=== PATIENT | female | born 1980 | race Caucasian/White ===

== ENCOUNTER 2017-07-22 17:16 | Emergency (ER) | payer SELFPAY ==
--- NOTE | 2017-07-22 17:52 | ER Document Report ---
HPI - HPI Patient complains to provider of: sicke for 9 days Onset: Other - 9 days Pain Level: 3 Context: 36 yo smoker female sick for 9 days with cough, congestion, left sinus congestion, dizziness, fever, vomiting, diarrhea, left ear pain. Associated Symptoms: None Exacerbated by: Denies Relieved by: Denies Similar symptoms previously: No Recently seen / treated by doctor: No - ROS ROS below otherwise negative: Yes Systems Reviewed and Negative: Yes All other systems reviewed and negative - REPRODUCTIVE Reproductive: DENIES: : Past Medical History - General Information source: Patient - Social History Smoking Status: Current Every Day Smoker Frequency of alcohol use: None Drug Abuse: None Lives with: Spouse/Significant other Family History: Reviewed & Not Pertinent - Medical History Medical History: Negative Musculoskeltal Medical History: Denies Hx Arthritis Past Surgical History: Reports: Hx Cholecystectomy, Hx Hysterectomy, Hx Orthopedic Surgery - Immunizations Immunizations up to date: Yes Hx Diphtheria, Pertussis, Tetanus Vaccination: Yes Vertical Provider Document - CONSTITUTIONAL Agree With Documented VS: Yes General Appearance: No Apparent Distress - INFECTION CONTROL TRAVEL OUTSIDE OF THE [place] IN LAST 30 DAYS: No - HEENT HEENT: Conjuctival Injection - bilateral, right more than left. No fluorescein uptake., PERRLA Notes: left purulent effusion, no bulge - NECK Neck: Supple, Lymphadenopathy-Left, Lymphadenopathy-Right - RESPIRATORY Respiratory: Rales - left O2 Sat by Pulse Oximetry: 97 Notes: after nebulizer tx coarse rhonci bilatera - CARDIOVASCULAR Cardiovascular: Regular Rate, Regular Rhythm - GI/ABDOMEN Gastrointestinal: Abdomen Soft, Abdomen Non-Tender, No Organomegaly - MUSCULOSKELETAL/EXTREMETIES Musculoskeletal/Extremeties: MAEW - NEURO Level of Consciousness: Awake, Alert Motor/Sensory: No Motor Deficit, No Sensory Deficit - DERM Integumentary: No Rash Course - Re-evaluation Re-evalutation: 07/22/17 19:27 Chest x-ray suspicious for pneumonia per the radiologist - Vital Signs Vital signs: Temp Pulse Resp BP Pulse Ox 98.4 F 78 20 135/100 H 97 07/22/17 17:24 07/22/17 17:24 07/22/17 17:24 07/22/17 17:24 07/22/17 17:24 Discharge - Discharge Clinical Impression: Bilateral conjunctivitis, Left otitis media, Right upper lobe pneumonia Condition: Good Disposition: HOME, SELF-CARE Instructions: Ciprofloxacin ([facility]), Conjunctivitis ([facility]), Eyedrop Use ([facility]), Levofloxacin, Otitis Media ([facility]), Pneumonia ([facility]), Stop Smoking ([facility]) Additional Instructions: stop smoking saline nasal spray to help clear the sinus warm compress to sinus antibiotics as prescribed to ER if shortness of breath, trouble breathing, swelling to eyes any concerns use the albuterol MDI 2 puffs every 3 hours for the cough 2 eye drops for the conjunctivits 6 times per day for 2 days, then four times per day for 3 days Prescriptions: Albuterol Sulfate [Proair HFA Inhalation Aerosol 8.5 gm MDI] 2 puff IH Q3HP PRN #1 hfa.aer.ad PRN Reason: Ciprofloxacin HCl [Ciloxan] 2 drp OU 6XD #1 bottle Levofloxacin 750 mg PO DAILY #4 tablet Forms: Return to Work
[2017-07-22] MEDS ORDERED: IPRATROPIUM/ALBUTEROL 0.5-2.5 MG/3 ML AMPUL NEB ONE (18:15)
--- NOTE | 2017-07-22 18:36 | RADIOLOGY REPORT (SQ) ---
EXAM DESCRIPTION: CHEST PA/LAT COMPLETED DATE/TIME: 07/22/2017 6:28 pm REASON FOR STUDY: cough, rales left base COMPARISON: 08/10/2012 EXAM PARAMETERS: NUMBER OF VIEWS: two views TECHNIQUE: Digital Frontal and Lateral radiographic views of the chest acquired. RADIATION DOSE: NA LIMITATIONS: none FINDINGS: LUNGS AND PLEURA: New patchy right upper lobe airspace opacities. Lungs otherwise clear. MEDIASTINUM AND HILAR STRUCTURES: No masses or contour abnormalities. HEART AND VASCULAR STRUCTURES: Heart normal size. No evidence for failure. BONES: No acute findings. HARDWARE: None in the chest. OTHER: No other significant finding. IMPRESSION: NEW PATCHY RIGHT UPPER LOBE AIRSPACE OPACITIES SUSPICIOUS FOR DEVELOPING PNEUMONIA. REC OMMEND FOLLOWUP RADIOGRAPHS 4 TO 6 WEEKS TO ENSURE RESOLUTION. TECHNICAL DOCUMENTATION: JOB ID: [id number] [employer]- All Rights Reserved Reading location - IP/workstation name: [email or web address]
[2017-07-22] MEDS ORDERED: ALBUTEROL SULFATE 0.083% NEB 2.5 MG/3 ML AMPUL NEB ONE (19:23)
[2017-07-22] MEDS ORDERED: LEVOFLOXACIN 750 MG TABLET PO ONE (19:31)
[2017-07-22 20:20] VITALS: BP 132/75
== END 2017-07-22 20:20 | disposition home or self-care (01) ==
LOC: ER 17:16
DX: J18.9 Pneumonia, unspecified organism (principal); H66.92 Otitis media, unspecified, left ear; H10.33 Unspecified acute conjunctivitis, bilateral; F17.200 Nicotine dependence, unspecified, uncomplicated; Z90.49 Acquired absence of other specified parts of digestive tract; Z90.710 Acquired absence of both cervix and uterus
CPT/HCPCS: 94640 ×2; 99283; 71046; J7620

== ENCOUNTER 2017-07-25 15:43 | Inpatient (IN) | payer MEDICAID ==
[2017-07-25] MEDS ORDERED: NORMAL SALINE 1000 ML 1,000 ML IV ONE ×3 (17:16→21:05)
[2017-07-25] MEDS ORDERED: ONDANSETRON HCL INJ/PF 4 MG/2 ML SDV IV ONE (17:16)
--- NOTE | 2017-07-25 17:17 | ER Document Report ---
ED Medical Screen (RME) - General Chief Complaint: Vomiting Stated Complaint: EAR PAIN, VOMITING Time Seen by Provider: 07/25/17 17:12 Notes: Patient was here approximately 2 days ago and diagnosed with pneumonia. She states she was also diagnosed with bilateral conjunctivitis and sinusitis. She states she has been taking the antibiotics however she does not feel any better and is having worse vomiting. She states she feels very weak and nauseous and has generalized body aches. TRAVEL OUTSIDE OF THE [place] IN LAST 30 DAYS: No - Related Data Allergies/Adverse Reactions: cortisone [Cortisone] Allergy (Verified 07/25/17 15:47) Past Medical History - Social History Chew tobacco use (# tins/day): No Frequency of alcohol use: None Drug Abuse: None - Past Medical History Cardiac Medical History: Denies: Hx Coronary Artery Disease, Hx Heart Attack, Hx Hypertension Pulmonary Medical History: Denies: Hx Asthma, Hx Bronchitis, Hx COPD, Hx Pneumonia Neurological Medical History: Denies: Hx Cerebrovascular Accident, Hx Seizures Renal/ Medical History: Denies: Hx Peritoneal Dialysis Musculoskeltal Medical History: Denies Hx Arthritis Past Surgical History: Reports: Hx Cholecystectomy, Hx Hysterectomy, Hx Orthopedic Surgery - bilateral knee surgery - Immunizations Immunizations up to date: Yes Hx Diphtheria, Pertussis, Tetanus Vaccination: Yes Physical Exam - Vital signs Vitals: Temp Pulse Resp BP Pulse Ox 96.5 F L 68 18 135/94 H 98 07/25/17 16:04 07/25/17 16:04 07/25/17 16:04 07/25/17 16:04 07/25/17 16:04 Course - Vital Signs Vital signs: Temp Pulse Resp BP Pulse Ox 96.5 F L 68 18 135/94 H 98 07/25/17 16:04 07/25/17 16:04 07/25/17 16:04 07/25/17 16:04 07/25/17 16:04
[2017-07-25 17:41] LABS: HEMATOCRIT 41.1 % (36.0-47.0); HEMOGLOBIN 14.1 g/dL (12.0-15.5); MEAN CORPUSCULAR HEMOGLOBIN 31.5 pg (27.0-33.4); MEAN CORPUSCULAR HGB CONC 34.2 g/dL (32.0-36.0); MEAN CORPUSCULAR VOLUME 92 fl (80-97); PLATELET COUNT 213 10^3/uL (150-450); RED BLOOD COUNT 4.46 10^6/uL (3.72-5.28); RED CELL DISTRIBUTION WIDTH 15.1 % (11.5-14.0); WHITE BLOOD COUNT 14.9 10^3/uL (4.0-10.5)
--- NOTE | 2017-07-25 17:53 | RADIOLOGY REPORT (SQ) ---
EXAM DESCRIPTION: CHEST PA/LAT COMPLETED DATE/TIME: 07/25/2017 5:41 pm REASON FOR STUDY: recent pna/sob/cp COMPARISON: 07/22/2017 EXAM PARAMETERS: NUMBER OF VIEWS: two views TECHNIQUE: Digital Frontal and Lateral radiographic views of the chest acquired. RADIATION DOSE: NA LIMITATIONS: none FINDINGS: LUNGS AND PLEURA: No opacities, masses or pneumothorax. No pleural effusion. MEDIASTINUM AND HILAR STRUCTURES: No masses or contour abnormalities. HEART AND VASCULAR STRUCTURES: Heart normal size. No evidence for failure. BONES: No acute findings. HARDWARE: None in the chest. OTHER: No other significant finding. IMPRESSION: NO SIGNIFICANT RADIOGRAPHIC FINDING IN THE CHEST. TECHNICAL DOCUMENTATION: JOB ID: [id number] [employer]- All Rights Reserved Reading location - IP/workstation name: [email or web address]
[2017-07-25 17:57] LABS: AMORPHOUS SEDIMENT,URINE TRACE /HPF; APPEARANCE,URINE SLIGHTLY-CLOUDY; BILIRUBIN,URINE NEGATIVE (NEGATIVE); COLOR,URINE YELLOW; GLUCOSE, URINE NEGATIVE (NEGATIVE); KETONES,URINE NEGATIVE (NEGATIVE); LEUKOCYTE ESTERASE,URINE NEGATIVE (NEGATIVE); NITRITE,URINE NEGATIVE (NEGATIVE); PROTEIN,URINE NEGATIVE (NEGATIVE); URINE SPECIFIC GRAVITY 1.017; UROBILINOGEN,URINE NEGATIVE mg/dL (<2.0)
[2017-07-25 18:00] LABS: ALANINE AMINOTRANSFERASE 253 U/L (9-52); ALBUMIN 4.5 g/dL (3.5-5.0); ALKALINE PHOSPHATASE 211 U/L (38-126); ASPARTATE AMINO TRANSFERASE 46 U/L (14-36); BILIRUBIN,DIRECT 0.9 mg/dL (0.0-0.4); CALCIUM 11.1 mg/dL (8.4-10.2); GLUCOSE 95 mg/dL (75-110)
[2017-07-25 18:01] LABS: ABSOLUTE LYMPHOCYTES# (MANUAL) 3.3 10^3/uL (0.5-4.7); ABSOLUTE NEUTROPHILS# (MANUAL) 10.6 10^3/uL (1.7-8.2); BAND NEUTROPHILS % (MANUAL) 1 % (3-5); BASOPHILS % (MANUAL) 0 % (0-2); EOSINOPHILS % (MANUAL) 0 % (0-6); LYMPHOCYTES % (MANUAL) 21 % (13-45); MONOCYTES % (MANUAL) 7 % (3-13); SEGMENTED NEUTROPHILS % (MAN) 70 % (42-78); TOTAL CELLS COUNTED 100
[2017-07-25 18:04] LABS: ANISOCYTOSIS SLIGHT; POLYCHROMASIA SLIGHT
[2017-07-25 18:08] LABS: HYPERSEGMENTED NEUTROPHILS PRESENT
[2017-07-25 18:09] LABS: PLATELET COMMENT ADEQUATE
[2017-07-25 18:14] LABS: CARBON DIOXIDE 19 mmol/L (22-30); POTASSIUM 4.5 mmol/L (3.6-5.0)
[2017-07-25 18:20] LABS: BLOOD UREA NITROGEN 146 mg/dL (7-20)
[2017-07-25 18:21] LABS: ANION GAP 26 (5-19); CHLORIDE 88 mmol/L (98-107); SODIUM 132.5 mmol/L (137-145)
--- NOTE | 2017-07-25 18:44 | ER Document Report ---
ED GI/ - General Chief Complaint: Vomiting Stated Complaint: EAR PAIN, VOMITING Time Seen by Provider: 07/25/17 17:12 Notes: The patient is a 36-year-old female who presents with nausea, vomiting and abdominal cramping over the past 4 days. She is diagnosed with pneumonia in the ER 3 days ago and started on Cipro. Patient said her shortness of breath and coughing are much better, but she is still having the vomiting. Patient also with bilateral ear pain and sinus congestion. She is only making a small amount of urine, but denies dysuria or hematuria. Patient denies rash, chest pain, other new medications, fevers, flank pain, blood in stool, hemoptysis, hematemesis or leg swelling. TRAVEL OUTSIDE OF THE [place] IN LAST 30 DAYS: No - Related Data Allergies/Adverse Reactions: cortisone [Cortisone] Allergy (Verified 07/25/17 15:47) Past Medical History - General Information source: Patient - Social History Smoking Status: Current Every Day Smoker Chew tobacco use (# tins/day): No Frequency of alcohol use: None Drug Abuse: None Family History: Reviewed & Not Pertinent Patient has suicidal ideation: No Patient has homicidal ideation: No - Past Medical History Cardiac Medical History: Denies: Hx Coronary Artery Disease, Hx Heart Attack, Hx Hypertension Pulmonary Medical History: Denies: Hx Asthma, Hx Bronchitis, Hx COPD, Hx Pneumonia Neurological Medical History: Denies: Hx Cerebrovascular Accident, Hx Seizures Renal/ Medical History: Denies: Hx Peritoneal Dialysis Musculoskeltal Medical History: Denies Hx Arthritis Past Surgical History: Reports: Hx Cholecystectomy, Hx Hysterectomy, Hx Orthopedic Surgery - bilateral knee surgery - Immunizations Immunizations up to date: Yes Hx Diphtheria, Pertussis, Tetanus Vaccination: Yes Review of Systems - Review of Systems Notes: REVIEW OF SYSTEMS: CONSTITUTIONAL: -fevers, -chills EENT: -eye pain, -difficulty swallowing, +nasal congestion, +B/L ear pain CARDIOVASCULAR: -chest pain, -syncope. RESPIRATORY: -cough, -SOB GASTROINTESTINAL: -abdominal pain, +nausea, +vomiting, -diarrhea GENITOURINARY: -dysuria, -hematuria MUSCULOSKELETAL: -back pain, -neck pain SKIN: -rash or skin lesions. HEMATOLOGIC: -easy bruising or bleeding. LYMPHATIC: -swollen, enlarged glands. NEUROLOGICAL: -altered mental status or loss of consciousness, -headache, - neurologic symptoms PSYCHIATRIC: -anxiety, -depression. ALL OTHER SYSTEMS REVIEWED AND NEGATIVE. Physical Exam - Vital signs Vitals: Temp Pulse Resp BP Pulse Ox 96.5 F L 68 18 135/94 H 98 07/25/17 16:04 07/25/17 16:04 07/25/17 16:04 07/25/17 16:04 07/25/17 16:04 - Notes Notes: PHYSICAL EXAMINATION: GENERAL: Well-appearing, well-nourished and in no acute distress. HEAD: Atraumatic, normocephalic. EYES: Pupils equal round and reactive to light, extraocular movements intact, sclera anicteric, conjunctiva are normal. ENT: nares patent, oropharynx clear without exudates. Moist mucous membranes. Fluid behind B/L TMs. Swollen turbinates. NECK: Normal range of motion, supple without lymphadenopathy LUNGS: Breath sounds clear to auscultation bilaterally and equal. No wheezes rales or rhonchi. HEART: Regular rate and rhythm without murmurs ABDOMEN: Soft, mild RUQ tenderness, normoactive bowel sounds. No guarding, no rebound. No masses appreciated. EXTREMITIES: Normal range of motion, no pitting or edema. No cyanosis. NEUROLOGICAL: Cranial nerves grossly intact. Normal speech, normal gait. Normal sensory and motor exams. PSYCH: Normal mood, normal affect. SKIN: Warm, Dry, normal turgor, no rashes or lesions noted. Course - Re-evaluation Re-evalutation: Patient with 4 days of nausea, vomiting and decreased oral intake over the past 4 days. No history of kidney disease that the patient is aware of. Her BUN is 146, creatinine is 17 and GFR is 3. This was repeated and confirmed. Ultrasound to look for obstruction of her kidneys was performed and this was normal. Her RUQ US also did not show any acute abnormalities to suggest her slightly elevated LFTs. Pt has no signs of infection at this time and suspect her leukocytosis is most likely related to her vomiting. Patient has no need for emergent dialysis at this time, as she is not fluid overloaded, her potassium is normal and she does not appear uremic. Her PMD is Manisha Mondragon. 07/25/17 20:[address] Burton (Chef De Froid) and she recommends continued IVF hydration and admission. She will consult. 07/25/17 21:[address] Block (Hospitalist) and he is requesting bedside consultation by Dr. Burton due to difficulty obtaining dialysis on Tuesdays before he accepts. Spoke to Dr. Burton and she will call Dr. Block. 07/25/17 21:39 Will admit patient as Inpatient to Medical floor. - Vital Signs Vital signs: Temp Pulse Resp BP Pulse Ox 97.6 F 68 17 123/83 95 07/25/17 20:15 07/25/17 16:04 07/25/17 21:00 07/25/17 21:01 07/25/17 21:01 - Laboratory Result Diagrams: 07/25/17 17:25 07/25/17 19:51 Laboratory results interpreted by me: 07/25/17 07/25/17 07/25/17 17:25 17:25 17:25 WBC 14.9 H RDW 15.1 H Band Neutrophils % 1 L Abs Neuts (Manual) 10.6 H Sodium 132.5 L Chloride 88 L Carbon Dioxide 19 L Anion Gap 26 H BUN 146 H Creatinine 17.82 H Est GFR ( Amer) 3 L Est GFR (Non-Af Amer) 2 L Calcium 11.1 H Direct Bilirubin 0.9 H AST 46 H ALT 253 H Alkaline Phosphatase 211 H Total Protein Urine Blood SMALL H Urine Total Protein 07/25/17 07/25/17 17:25 19:51 WBC RDW Band Neutrophils % Abs Neuts (Manual) Sodium 132.2 L Chloride 93 L Carbon Dioxide 19 L Anion Gap 20 H BUN 146 H Creatinine 16.47 H Est GFR ( Amer) 3 L Est GFR (Non-Af Amer) 2 L Calcium Direct Bilirubin 0.8 H AST 38 H ALT 205 H Alkaline Phosphatase 162 H Total Protein 5.9 L Urine Blood Urine Total Protein 30.0 H - Diagnostic Test Radiology reviewed: Image reviewed, Reports reviewed Radiology results interpreted by me: Abdominal US: NAD Discharge - Discharge Clinical Impression: JASMIN (acute kidney injury), Nausea vomiting and diarrhea Condition: Stable Disposition: ADMITTED INPATIENT Admitting Provider: Bo Block Unit Admitted: Medical Floor
[2017-07-25 18:56] LABS: URINE AMPHETAMINES SCREEN NEGATIVE; URINE BARBITURATES SCREEN NEGATIVE; URINE BENZODIAZEPINES SCREEN NEGATIVE; URINE COCAINE SCREEN NEGATIVE; URINE MARIJUANA (THC) SCREEN NEGATIVE; URINE METHADONE SCREEN NEGATIVE; URINE PHENCYCLIDINE SCREEN NEGATIVE
--- NOTE | 2017-07-25 20:10 | RADIOLOGY REPORT (SQ) ---
EXAM DESCRIPTION: U/S ABDOMEN COMPLETE W/O DOP COMPLETED DATE/TIME: 07/25/2017 7:33 pm REASON FOR STUDY: vomiting, RUQ pain, post-todd COMPARISON: None. TECHNIQUE: Dynamic and static grayscale images acquired of the abdomen and recorded on PACS. Joseo becki selected color Doppler and spectral images recorded. LIMITATIONS: None. FINDINGS: PANCREAS: Head and body of the pancreas are normal. The tail was poorly seen. LIVER: 16.3 cm. No masses. LIVER VASCULATURE: Normal directional flow of the main portal vein and hepatic veins. GALLBLADDER: Surgically absent. ULTRASOUND-DETECTED LEHMAN'S SIGN: Not applicable INTRAHEPATIC DUCTS AND COMMON DUCT: CBD and intrahepatic ducts normal caliber. No filling defects. INFERIOR VENA CAVA: Normal flow. AORTA: No aneurysm. RIGHT KIDNEY: Normal size, 12.7 cm. Normal echogenicity. No solid or suspicious masses. No hyd ronephrosis. No calcifications. LEFT KIDNEY: Normal size, 12 cm. Normal echogenicity. No solid or suspicious masses. No hydron ephrosis. No calcifications. SPLEEN: 11.1 cm. No masses. PERITONEAL AND PLEURAL SPACES: No ascites or effusions. OTHER: The urinary bladder is incompletely distended and not well evaluated. A left urinary jet was seen. IMPRESSION: NORMAL ABDOMINAL ULTRASOUND. TECHNICAL DOCUMENTATION: JOB ID: [id number] [employer]- All Rights Reserved Reading location - IP/workstation name: [email or web address]
[2017-07-25 20:11] LABS: URINE CREATININE 110.9 mg/dL (16-327)
[2017-07-25 20:14] LABS: ALANINE AMINOTRANSFERASE 205 U/L (9-52); ALBUMIN 3.6 g/dL (3.5-5.0); ALKALINE PHOSPHATASE 162 U/L (38-126); ASPARTATE AMINO TRANSFERASE 38 U/L (14-36); BILIRUBIN,DIRECT 0.8 mg/dL (0.0-0.4); BILIRUBIN,TOTAL 0.9 mg/dL (0.2-1.3); CALCIUM 9.5 mg/dL (8.4-10.2); CARBON DIOXIDE 19 mmol/L (22-30); CHLORIDE 93 mmol/L (98-107); GLUCOSE 94 mg/dL (75-110); POTASSIUM 4.3 mmol/L (3.6-5.0); SODIUM 132.2 mmol/L (137-145); TOTAL PROTEIN 5.9 g/dL (6.3-8.2)
[2017-07-25 20:53] LABS: ANION GAP 20 (5-19); BLOOD UREA NITROGEN 146 mg/dL (7-20)
[2017-07-25] MEDS: HEPARIN SOD (PORCINE) 5,000 UNIT/ML 1 ML SYRINGE SUBCUT SCH (22:18)
[2017-07-25] MEDS: NORMAL SALINE 1000 ML 1,000 ML IV SCH (22:21)
[2017-07-25] MEDS: IPRATROPIUM/ALBUTEROL 0.5-2.5 MG/3 ML AMPUL NEB PRN (22:34)
[2017-07-26] MEDS: NORMAL SALINE 1000 ML 1,000 ML IV SCH ×2 (01:03→06:22)
[2017-07-26] MEDS ORDERED: CHLORPHENIRAMINE MALEATE 4 MG TABLET ONE (01:06)
[2017-07-26] MEDS: IPRATROPIUM/ALBUTEROL 0.5-2.5 MG/3 ML AMPUL NEB PRN (01:17)
[2017-07-26] MEDS: ONDANSETRON HCL INJ/PF 4 MG/2 ML SDV IV PRN ×3 (01:18→09:55)
--- NOTE | 2017-07-26 03:30 | PDOC H&P ---
History of Present Illness Admission Date/PCP: 07/25/17 21:33 Patient complains of: Nausea and vomiting History of Present Illness: DAVIS BRUCE is a 36 year old female with a past medical history of substance and tobacco abuse. Patient presents with 2 weeks of symptoms of upper respiratory infection for which she was treated with ciprofloxacin 3 days ago. She has had no improvement but has developed anorexia, nausea with vomiting of gastric content and subjective fever. In the emergency room she has a workup notable for leukocytosis of 15,000 and a creatinine of 17 with BUN of 146. Patient denies history of renal failure, oliguria, shortness of breath , palpitations or [id number]-[id number] medication use. She started on an IV fluid challenge, flower shop laborer/designer Dr. Burton is consulted and she is referred to the hospitalist for admission. Past Medical History Cardiac Medical History: Denies: Coronary Artery Disease, Myocardial Infarction, Hypertension Pulmonary Medical History: Denies: Asthma, Bronchitis, Chronic Obstructive Pulmonary Disease (COPD), Pneumonia Neurological Medical History: Denies: Seizures Musculoskeltal Medical History: Denies: Arthritis Psychiatric Medical History: Reports: Substance Abuse, Tobacco Dependency Hematology: Denies: Anemia Past Surgical History Past Surgical History: Reports: Cholecystectomy, Hysterectomy, Orthopedic Surgery - bilateral knee surgery Social History Information Source: Patient Smoking Status: Current Every Day Smoker Frequency of Alcohol Use: Rare Drugs: None - Advance Directive Resuscitation Status: Full Code Family History Family History: COPD Parental Family History Reviewed: Yes Children Family History Reviewed: Yes Sibling(s) Family History Reviewed.: Yes Medication/Allergy Home Medications: No Home Medications 07/25/17 Allergies/Adverse Reactions: cortisone [Cortisone] Allergy (Verified 07/25/17 15:47) Review of Systems Constitutional: PRESENT: as per HPI, anorexia, chills, fatigue, fever(s). ABSENT: headache(s), weight gain, weight loss Eyes: PRESENT: as per HPI. ABSENT: visual disturbances Ears: PRESENT: as per HPI. ABSENT: hearing changes Cardiovascular: ABSENT: chest pain, dyspnea on exertion, edema, orthropnea, palpitations Respiratory: ABSENT: cough, hemoptysis Gastrointestinal: PRESENT: as per HPI, abdominal pain, nausea, vomiting. ABSENT : coffee ground emesis, constipation, diarrhea, hematemesis, hematochezia Genitourinary: PRESENT: as per HPI. ABSENT: dysuria, hematuria Musculoskeletal: ABSENT: joint swelling Integumentary: ABSENT: rash, wounds Neurological: ABSENT: abnormal gait, abnormal speech, confusion, dizziness, focal weakness, syncope Psychiatric: ABSENT: anxiety, depression, homidical ideation, suicidal ideation Endocrine: ABSENT: cold intolerance, heat intolerance, polydipsia, polyuria Hematologic/Lymphatic: ABSENT: easy bleeding, easy bruising Physical Exam Vital Signs: Temp Pulse Resp BP Pulse Ox 97.6 F 68 18 131/83 H 95 07/25/17 20:15 07/25/17 16:04 07/26/17 00:01 07/26/17 00:00 07/26/17 00:01 Intake & Output 07/24/17 07/25/17 07/26/17 11:59 11:59 11:59 Output Total 200 Balance -200 General appearance: PRESENT: cooperative, disheveled, mild distress, thin Head exam: PRESENT: atraumatic, normocephalic Eye exam: PRESENT: conjunctiva pink, EOMI, PERRLA. ABSENT: scleral icterus Ear exam: PRESENT: normal external ear exam Mouth exam: PRESENT: moist, tongue midline Neck exam: ABSENT: carotid bruit, JVD, lymphadenopathy, thyromegaly Respiratory exam: PRESENT: accessory muscle use, crackles, decreased breath sounds, prolonged expiratory phas, symmetrical, tachypnea. ABSENT: rhonchi, stridor, wheezes Cardiovascular exam: PRESENT: RRR. ABSENT: diastolic murmur, rubs, systolic murmur Pulses: PRESENT: normal dorsalis pedis pul Vascular exam: PRESENT: normal capillary refill GI/Abdominal exam: PRESENT: normal bowel sounds, soft. ABSENT: distended, guarding, mass, organolmegaly, rebound, tenderness Rectal exam: PRESENT: deferred Extremities exam: PRESENT: full ROM. ABSENT: calf tenderness, clubbing, pedal edema Neurological exam: PRESENT: alert, awake, oriented to person, oriented to place , oriented to time, oriented to situation, CN II-XII grossly intact. ABSENT: motor sensory deficit Psychiatric exam: PRESENT: appropriate affect, normal mood. ABSENT: homicidal ideation, suicidal ideation Skin exam: PRESENT: dry, intact, warm. ABSENT: cyanosis, rash Results Impressions: Chest X-Ray 07/25/17 17:16 IMPRESSION: NO SIGNIFICANT RADIOGRAPHIC FINDING IN THE CHEST. Abdomen Ultrasound 07/25/17 18:32 IMPRESSION: NORMAL ABDOMINAL ULTRASOUND. Assessment & Plan - Diagnosis (1) JASMIN (acute kidney injury) Is this a current diagnosis for this admission?: Yes Plan: IV fluid challenge, follow-up nephrology consult and chemistry. (2) URI (upper respiratory infection) Is this a current diagnosis for this admission?: Yes Plan: Symptomatic management for sinusitis, chlorpheniramine, Flonase, albuterol and Atrovent, given leukocytosis will add Rocephin. (3) Tobacco abuse Plan: Tobacco Dependence patient received tobacco cessation counseling and offered nicotine replacement options (4) Nausea vomiting and diarrhea Is this a current diagnosis for this admission?: Yes Plan: Symptomatic management, consider imaging. - Time Time Spent: 30 to 50 Minutes - Inpatient Certification Medical Necessity: Need Close Monitoring Due to Risk of Patient Decompensation
[2017-07-26] MEDS ORDERED: CEFTRIAXONE 1 GM/D5W RTU 1 GM/50 ML RTUPB IV ONE (04:00)
[2017-07-26 04:13] LABS: HEMATOCRIT 33.1 % (36.0-47.0); MEAN CORPUSCULAR HEMOGLOBIN 31.9 pg (27.0-33.4); MEAN CORPUSCULAR HGB CONC 34.4 g/dL (32.0-36.0); MEAN CORPUSCULAR VOLUME 93 fl (80-97); PLATELET COUNT 161 10^3/uL (150-450); RED BLOOD COUNT 3.57 10^6/uL (3.72-5.28); RED CELL DISTRIBUTION WIDTH 15.1 % (11.5-14.0); WHITE BLOOD COUNT 10.6 10^3/uL (4.0-10.5)
[2017-07-26 04:17] LABS: HEMOGLOBIN 11.4 g/dL (12.0-15.5)
[2017-07-26 04:23] LABS: ANION GAP 17 (5-19); CALCIUM 8.5 mg/dL (8.4-10.2); CARBON DIOXIDE 15 mmol/L (22-30); CHLORIDE 105 mmol/L (98-107); GLUCOSE 81 mg/dL (75-110); POTASSIUM 4.2 mmol/L (3.6-5.0); SODIUM 137.4 mmol/L (137-145)
[2017-07-26 04:29] LABS: ABSOLUTE LYMPHOCYTES# (MANUAL) 2.1 10^3/uL (0.5-4.7); ABSOLUTE MONOCYTES # (MANUAL) 0.7 10^3/uL (0.1-1.4); ABSOLUTE NEUTROPHILS# (MANUAL) 7.7 10^3/uL (1.7-8.2); BAND NEUTROPHILS % (MANUAL) 2 % (3-5); BASOPHILS % (MANUAL) 0 % (0-2); EOSINOPHILS % (MANUAL) 0 % (0-6); LYMPHOCYTES % (MANUAL) 20 % (13-45); MONOCYTES % (MANUAL) 7 % (3-13); SEGMENTED NEUTROPHILS % (MAN) 71 % (42-78); TOTAL CELLS COUNTED 100
[2017-07-26 04:32] LABS: ANISOCYTOSIS SLIGHT; BURR CELLS SLIGHT; OVALOCYTES SLIGHT; POIKILOCYTOSIS 1+; TOXIC GRANULATION 2+
[2017-07-26 04:33] LABS: PLATELET COMMENT ADEQUATE; PLATELET LARGE PRESENT; SCHISTOCYTES 1+; TEAR DROP CELLS 1+
[2017-07-26 04:34] LABS: BLOOD UREA NITROGEN 127 mg/dL (7-20)
[2017-07-26] MEDS ORDERED: CEFTRIAXONE INJ 1000 MG VIAL ONE (04:34)
[2017-07-26] MEDS: HEPARIN SOD (PORCINE) 5,000 UNIT/ML 1 ML SYRINGE SUBCUT SCH ×3 (06:22→22:20)
[2017-07-26] MEDS ORDERED: METOCLOPRAMIDE HCL INJ/PF 10 MG/2 ML SDV IV ONE (11:16)
[2017-07-26 12:54] LABS: PATH REVIEW PATHOLOGIST REVIEWED
--- NOTE | 2017-07-26 17:11 | Progress Note ---
Provider Note Provider Note: 36-year-old woman with history of substance and tobacco abuse admitted overnight with intractable nausea and vomiting associated with subjective fevers. She was found to have a white count of 15,000 on presentation and afebrile. She was found to have acute kidney injury with a BUN of 146, creatinine 18, NA 132, CO2 19. Seen and examined this am and she reports that she has not thrown up the last 1.5 hours and significant other present during rounds. She is making good urine she said and renal consulted and continue IVF.
--- NOTE | 2017-07-26 17:33 | PDOC CONSULTATION ---
Consultation Consult Date: 07/26/17 Attending physician:: DUDLEY MARSHALL Consult reason:: I was asked to see this patient because of acute kidney injury. History of Present Illness Admission Date/PCP: 07/25/17 21:33 History of Present Illness: DAVIS BRUCE is a 36 year old female with a past medical history of substance and tobacco abuse. Patient presents with 2 weeks of symptoms of upper respiratory infection for which she was treated with ciprofloxacin 3 days ago from the emergency room. She said she has had some chest congestion, sore throat, sinus congestion, and bilateral ear pains. She also claims she has some cough productive of some yellow and greenish phlegm. She has had no improvement but has developed anorexia, nausea with vomiting of gastric content for 2 weeks and subjective fever for 2 days. She said she ate very little solid food and drink very little fluids for the 2 weeks because she could not tolerate it orally. She denies intake of any nephrotoxic medications including NSAIDs. In the emergency room she has a workup notable for leukocytosis of 15, 000 and a creatinine of 17 with BUN of 146. Her CPK is within normal limits. Patient denies history of renal failure, oliguria, shortness of breath, palpitations. She said she did not notice her urine output since she has all other symptoms stated above. She denies any previous history of kidney problems in the past nor history of kidney stones. She denies noticing any blood in the urine. For the past 2 weeks though she has some episodes of leaking and having urinary accidents whenever she vomits. She denies any history of hepatitis and HIV. Since presentation in the emergency room she has been hemodynamically stable. She was given about 5-6 L of IV fluids since last night. She claims that she is going to the bathroom and has been passing urine. Urine output has not been quantified. She is comfortable and not feeling any shortness of breath. Her kidney function today shows a BUN of 127 creatinine of 15.81 with EGFR of 3. Her sodium is improved from 132.5-137.4. Her white count is also improved from 14-10. Her hemoglobin has gone down from 14-10. Past Medical History Renal/ Medical History: Reports: Other - History of endometriosis GI Medical History: Reports: Other - History of cholelithiasis Musculoskeltal Medical History: Reports: Other - History of tear of meniscus on her knees Psychiatric Medical History: Reports: Substance Abuse, Tobacco Dependency Past Surgical History Past Surgical History: Reports: Cholecystectomy, Hysterectomy, Orthopedic Surgery - bilateral knee surgery Social History Information Source: Patient Lives with: Family - 2 kids, Spouse/Significant other Smoking Status: Current Every Day Smoker Cigarettes Packs Per Day: 0.5 Frequency of Alcohol Use: Occasional Hx Recreational Drug Use: Yes - Has used marijuana in the past Drugs: None Hx Prescription Drug Abuse: Yes - Advance Directive Resuscitation Status: Full Code Family History Family History: DM - Grandparent, Hypertension - Father Parental Family History Reviewed: Yes Children Family History Reviewed: Yes Sibling(s) Family History Reviewed.: NA Medication/Allergy Home Medications: No Home Medications 07/25/17 Allergies/Adverse Reactions: cortisone [Cortisone] Allergy (Verified 07/25/17 15:47) Review of Systems All systems: reviewed and no additional remarkable complaints except as stated Review of Systems: Constitutional: ABSENT: chills, fatigue, fever(s), headache(s), weight gain, weight loss Eyes: ABSENT: visual disturbances Ears: ABSENT: hearing changes; admits plugged ears Cardiovascular: ABSENT: chest pain, dyspnea on exertion, edema, orthropnea, palpitations Respiratory: ABSENT: Dyspnea, hemoptysis; admits productive cough, admits chest congestion Gastrointestinal: ABSENT: Constipation, hematemesis, hematochezia; admits nausea , vomiting, and 1 week of diarrhea, admits abdominal pain from vomiting Genitourinary: ABSENT: dysuria, hematuria Musculoskeletal: ABSENT: joint swelling Integumentary: ABSENT: rash, wounds Neurological: ABSENT: abnormal gait, abnormal speech, confusion, dizziness, focal weakness, numbness, syncope Psychiatric: ABSENT: anxiety, depression Endocrine: ABSENT: cold intolerance, heat intolerance, polydipsia, polyuria Hematologic/Lymphatic: ABSENT: easy bleeding, easy bruising, lymphadenopathy Physical Exam Vital Signs: Temp Pulse Resp BP Pulse Ox 98.0 F 65 18 146/86 H 97 07/26/17 15:42 07/26/17 15:42 07/26/17 15:42 07/26/17 15:42 07/26/17 15:42 Intake & Output 07/25/17 07/26/17 07/27/17 06:59 06:59 06:59 Output Total 200 Balance -200 Weight 74.4 kg Exam: General appearance: no acute distress, cooperative, well-developed, well- nourished Head exam: PRESENT: atraumatic, normocephalic Eye exam: PRESENT: Conjunctiva [place], EOMI, PERRLA. ABSENT: conjunctival injection, scleral icterus Mouth exam: PRESENT: moist, neck supple, tongue midline Neck exam: PRESENT: full ROM. ABSENT: carotid bruit, JVD, lymphadenopathy, thyromegaly Respiratory exam: PRESENT: clear and mildly diminished to auscultation bilaterally. ABSENT: rales, rhonchi, stridor, wheezes Cardiovascular exam: PRESENT: RRR, +S1, +S2. ABSENT: systolic murmur Pulses: PRESENT: normal radial pulses, normal dorsalis pedis pulses GI/Abdominal exam: PRESENT: normal bowel sounds, soft. ABSENT: guarding, mass, tenderness Rectal exam: deferred Extremities exam: PRESENT: full ROM. ABSENT: calf tenderness, pedal edema Musculoskeletal: PRESENT: full ROM. ABSENT: deformity Neurological exam: PRESENT: alert, Awake, Oriented to person, Oriented to place , Oriented to time, reflexes normal, CN II-XII grossly intact. ABSENT: motor sensory deficit Psychiatric exam: PRESENT: appropriate affect, normal mood. ABSENT: homicidal ideation, suicidal ideation Skin exam: PRESENT: intact, dry, warm. ABSENT: rash Results Laboratory Results: 07/26/17 03:55 07/26/17 03:55 07/26/17 07/26/17 03:55 03:55 WBC 10.6 H RBC 3.57 L Hgb 11.4 L D Hct 33.1 L MCV 93 MCH 31.9 MCHC 34.4 RDW 15.1 H Plt Count 161 Seg Neutrophils % Not Reportable Lymphocytes % Not Reportable Monocytes % Not Reportable Eosinophils % Not Reportable Basophils % Not Reportable Absolute Neutrophils Not Reportable Absolute Lymphocytes Not Reportable Absolute Monocytes Not Reportable Absolute Eosinophils Not Reportable Absolute Basophils Not Reportable Sodium 137.4 Potassium 4.2 Chloride 105 Carbon Dioxide 15 L Anion Gap 17 BUN 127 H Creatinine 15.81 H Est GFR ( Amer) 3 L Est GFR (Non-Af Amer) 3 L Glucose 81 Calcium 8.5 Impressions: Chest X-Ray 07/25/17 17:16 IMPRESSION: NO SIGNIFICANT RADIOGRAPHIC FINDING IN THE CHEST. Abdomen Ultrasound 07/25/17 18:32 IMPRESSION: NORMAL ABDOMINAL ULTRASOUND. Assessment & Plan - Diagnosis (1) JASMIN (acute kidney injury) Is this a current diagnosis for this admission?: Yes Plan: Patient does not have significant proteinuria nor microhematuria. No evidence of rhabdomyolysis. She also does not have any hydronephrosis and kidney ultrasound with normal kidney sizes. This could still be more slightly secondary to severe dehydration causing prerenal azotemia even though her urine sodium is 43. We will continue to hydrate the patient. Monitor kidney function. Since the patient's kidney function is improved after IV fluid hydration I would like to hold any renal replacement therapy as there is no urgent or emergent indication for it. Next We will recheck her BMP stat tonight. We will repeat another test tomorrow. We will monitor the patient's intake and output. Continue some IV fluids. Assessment and plan discussed with patient with her boyfriend at bedside. (2) Nausea vomiting and diarrhea Is this a current diagnosis for this admission?: Yes Plan: Defer to hospitalist for management. (3) URI (upper respiratory infection) Is this a current diagnosis for this admission?: Yes Plan: On IV antibiotics. (4) Anemia Is this a current diagnosis for this admission?: Yes Plan: Mild after IV fluids. - Notes Notes: Thank you very much for this consultation. Will follow patient with you. - Time Time Spent: 50 to 70 Minutes
[2017-07-26] MEDS: CHLORPHENIRAMINE MALEATE 4 MG TABLET PO SCH (18:15)
[2017-07-26 18:41] LABS: CALCIUM 9.1 mg/dL (8.4-10.2); GLUCOSE 93 mg/dL (75-110); POTASSIUM 4.3 mmol/L (3.6-5.0)
[2017-07-26 18:47] LABS: CARBON DIOXIDE 16 mmol/L (22-30); CHLORIDE 102 mmol/L (98-107); SODIUM 137.9 mmol/L (137-145)
[2017-07-26 18:51] LABS: BLOOD UREA NITROGEN 130 mg/dL (7-20)
[2017-07-26 18:52] LABS: ANION GAP 20 (5-19)
[2017-07-26] MEDS: NORMAL SALINE 1000 ML 1,000 ML IV PRN (22:20)
[2017-07-27] MEDS: NORMAL SALINE 1000 ML 1,000 ML IV PRN ×2 (01:45→07:18)
[2017-07-27] MEDS: HEPARIN SOD (PORCINE) 5,000 UNIT/ML 1 ML SYRINGE SUBCUT SCH ×3 (05:38→22:10)
[2017-07-27] MEDS: ONDANSETRON HCL INJ/PF 4 MG/2 ML SDV IV PRN ×2 (05:40→13:54)
[2017-07-27 06:22] LABS: HEMOGLOBIN 11.7 g/dL (12.0-15.5); MEAN CORPUSCULAR HEMOGLOBIN 32.2 pg (27.0-33.4); MEAN CORPUSCULAR HGB CONC 34.3 g/dL (32.0-36.0); MEAN CORPUSCULAR VOLUME 94 fl (80-97); PLATELET COUNT 135 10^3/uL (150-450); RED BLOOD COUNT 3.63 10^6/uL (3.72-5.28); RED CELL DISTRIBUTION WIDTH 15.2 % (11.5-14.0); WHITE BLOOD COUNT 10.2 10^3/uL (4.0-10.5)
[2017-07-27 06:44] LABS: ALANINE AMINOTRANSFERASE 126 U/L (9-52); ALBUMIN 3.1 g/dL (3.5-5.0); ALKALINE PHOSPHATASE 121 U/L (38-126); ANION GAP 19 (5-19); ASPARTATE AMINO TRANSFERASE 37 U/L (14-36); BILIRUBIN,DIRECT 0.7 mg/dL (0.0-0.4); BILIRUBIN,TOTAL 0.8 mg/dL (0.2-1.3); CALCIUM 8.8 mg/dL (8.4-10.2); CARBON DIOXIDE 12 mmol/L (22-30); CHLORIDE 108 mmol/L (98-107); GLUCOSE 73 mg/dL (75-110); POTASSIUM 5.2 mmol/L (3.6-5.0); SODIUM 138.9 mmol/L (137-145); TOTAL PROTEIN 5.4 g/dL (6.3-8.2)
[2017-07-27 06:51] LABS: BLOOD UREA NITROGEN 126 mg/dL (7-20)
[2017-07-27 07:03] LABS: ABSOLUTE LYMPHOCYTES# (MANUAL) 1.1 10^3/uL (0.5-4.7); ABSOLUTE MONOCYTES # (MANUAL) 0.4 10^3/uL (0.1-1.4); ABSOLUTE NEUTROPHILS# (MANUAL) 8.7 10^3/uL (1.7-8.2); BASOPHILS % (MANUAL) 0 % (0-2); EOSINOPHILS % (MANUAL) 0 % (0-6); LYMPHOCYTES % (MANUAL) 11 % (13-45); MONOCYTES % (MANUAL) 4 % (3-13); SEGMENTED NEUTROPHILS % (MAN) 85 % (42-78); TOTAL CELLS COUNTED 100
[2017-07-27 07:05] LABS: ANISOCYTOSIS SLIGHT; OVALOCYTES SLIGHT; POIKILOCYTOSIS SLIGHT; TEAR DROP CELLS SLIGHT; TOXIC GRANULATION SLIGHT
[2017-07-27 07:06] LABS: PLATELET COMMENT DECREASED
[2017-07-27] MEDS ORDERED: CEFTRIAXONE 1 GM/D5W RTU 1 GM/50 ML RTUPB IV SCH (08:00)
[2017-07-27 08:40] LABS: HEPATITIS A AB IGM Negative (Negative); HEPATITIS B CORE AB IGM Negative (Negative); HEPATITS B SURFACE ANTIGEN Negative (Negative)
[2017-07-27] MEDS ORDERED: ONDANSETRON HCL INJ/PF 4 MG/2 ML SDV ONE (09:15)
[2017-07-27 09:34] LABS: HEPATITIS C VIRUS ANTIBODY <0.1 s/co ratio (0.0-0.9)
[2017-07-27] MEDS ORDERED: CEFTRIAXONE SODIUM 1,000 MG in NORMAL SALINE 100 ML IV SCH (10:00)
[2017-07-27] MEDS: CHLORPHENIRAMINE MALEATE 4 MG TABLET PO SCH (10:16)
[2017-07-27] MEDS: DEXTROSE 5%-WATER 1000 ML 1,000 ML with SODIUM BICARBONATE 150 MEQ IV PRN ×4 (10:21→22:10)
--- NOTE | 2017-07-27 15:59 | PDOC PROGRESS REPORT ---
Subjective Progress Note for:: 07/27/17 Subjective:: 36-year-old woman with history of substance and tobacco abuse presented to the ED on 07/25/2017 with intractable nausea and vomiting associated with subjective fevers. She was found to have a white count of 15, 000 on presentation which has resolved and she remains afebrile. She was found to have acute kidney injury with a BUN of 146, creatinine 18, NA 132, CO2 19. Seen and examined this am, she continue to have significant nausea and vomit at times not as before admission. She reports ear pain and popping sound. She reports making good urine. Reason For Visit: ARF NAUSEA VOMITING Physical Exam Vital Signs: Temp Pulse Resp BP Pulse Ox 98.3 F 60 16 149/89 H 98 07/27/17 11:10 07/27/17 14:41 07/27/17 14:41 07/27/17 11:10 07/27/17 14:41 Intake & Output 07/26/17 07/27/17 07/28/17 06:59 06:59 06:59 Intake Total 2654 120 Output Total 200 800 Balance -200 1854 120 Weight 73.9 kg General appearance: PRESENT: no acute distress, cooperative Head exam: PRESENT: atraumatic, normocephalic Mouth exam: PRESENT: moist, neck supple Neck exam: PRESENT: full ROM Respiratory exam: PRESENT: clear to auscultation mary, unlabored. ABSENT: accessory muscle use GI/Abdominal exam: PRESENT: normal bowel sounds, soft Rectal exam: PRESENT: deferred Extremities exam: PRESENT: full ROM Musculoskeletal exam: PRESENT: full ROM Neurological exam: PRESENT: alert, oriented to person, oriented to time, oriented to situation Psychiatric exam: PRESENT: appropriate affect Skin exam: PRESENT: dry, intact Results Laboratory Results: 07/27/17 05:24 07/27/17 05:24 07/26/17 07/27/17 07/27/17 17:30 05:24 05:24 WBC 10.2 RBC 3.63 L Hgb 11.7 L Hct 34.0 L MCV 94 MCH 32.2 MCHC 34.3 RDW 15.2 H Plt Count 135 L Seg Neutrophils % Not Reportable Lymphocytes % Not Reportable Monocytes % Not Reportable Eosinophils % Not Reportable Basophils % Not Reportable Absolute Neutrophils Not Reportable Absolute Lymphocytes Not Reportable Absolute Monocytes Not Reportable Absolute Eosinophils Not Reportable Absolute Basophils Not Reportable Sodium 137.9 138.9 Potassium 4.3 5.2 H Chloride 102 108 H Carbon Dioxide 16 L 12 L Anion Gap 20 H 19 BUN 130 H 126 H Creatinine 15.45 H 14.53 H Est GFR ( Amer) 3 L 3 L Est GFR (Non-Af Amer) 3 L 3 L Glucose 93 73 L Calcium 9.1 8.8 Magnesium 1.7 Total Bilirubin 0.8 AST 37 H ALT 126 H Alkaline Phosphatase 121 Total Protein 5.4 L Albumin 3.1 L Impressions: Chest X-Ray 07/25/17 17:16 IMPRESSION: NO SIGNIFICANT RADIOGRAPHIC FINDING IN THE CHEST. Abdomen Ultrasound 07/25/17 18:32 IMPRESSION: NORMAL ABDOMINAL ULTRASOUND. Assessment & Plan - Diagnosis (1) JASMIN (acute kidney injury) Is this a current diagnosis for this admission?: Yes Plan: Nonoliguric .This is likely prerenal. She did have an abdominal ultrasound without evidence of hydronephrosis. Seen and evaluated by nephrology. Continue IV fluid hydration. Strict intake and output. Renally dose all medication. (2) Nausea vomiting and diarrhea Is this a current diagnosis for this admission?: Yes Plan: Supportive care Continue IV fluid hydration and anti-emetics as needed Abdominal ultrasound noted without acute findings (3) URI (upper respiratory infection) Qualifiers: URI type: unspecified viral URI Qualified Code(s): J06.9 - Acute upper respiratory infection, unspecified Is this a current diagnosis for this admission?: Yes Plan: Continue current management We may need to discontinue antibiotics the next 24 hours (4) Tobacco abuse Is this a current diagnosis for this admission?: Yes Plan: Nicotine replacement (5) Metabolic acidosis Is this a current diagnosis for this admission?: Yes Plan: IV Fluid adjusted and changed to bicarbonate drip (6) Hyperkalemia, diminished renal excretion Is this a current diagnosis for this admission?: Yes Plan: Started on bicarb drips (7) Acute ear pain Qualifiers: Laterality: bilateral Qualified Code(s): H92.03 - Otalgia, bilateral Is this a current diagnosis for this admission?: Yes Plan: Concern for otitis media- Cipro ear drops added and follow up (8) DVT prophylaxis Is this a current diagnosis for this admission?: Yes Plan: Ambulatory - Time Time Spent with patient: 25-34 minutes Within: Other - when renal function gets better
[2017-07-27] MEDS ORDERED: PROMETHAZINE HCL INJ 25 MG/1 ML VIAL IV PRN (16:00)
[2017-07-27] MEDS: CIPROFLOXACIN-HC OTIC SUSP 10 ML AU SCH (17:05)
[2017-07-27] MEDS ORDERED: LIDOCAINE 2% INJ-PF (100 MG/5 ML) SYRINGE ONE (20:01)
--- NOTE | 2017-07-27 20:05 | PDOC PROGRESS REPORT ---
Subjective Progress Note for:: 07/27/17 Subjective:: Patient continues to be nauseated and vomiting. She is making some urine with 800 mL of as needed since last night. She said her ears are still clogged and the hospitalist is taking care of that. She is still nauseated and eating only very little. Otherwise she is not short of breath. Reason For Visit: ARF, NAUSEA VOMITING Physical Exam Vital Signs: Temp Pulse Resp BP Pulse Ox 98.4 F 62 18 149/93 H 99 07/27/17 15:58 07/27/17 15:58 07/27/17 15:58 07/27/17 15:58 07/27/17 15:58 Intake & Output 07/26/17 07/27/17 07/28/17 06:59 06:59 06:59 Intake Total 2654 1606 Output Total 200 800 600 Balance -200 1854 1006 Weight 73.9 kg Exam: General appearance: PRESENT: no acute distress, cooperative, well-developed, well-nourished Head exam: PRESENT: atraumatic, normocephalic Eye exam: PRESENT: conjunctiva slightly pale, PERRLA. ABSENT: scleral icterus Neck exam: ABSENT: JVD Respiratory exam: PRESENT: Normal breath sounds. ABSENT: crackles, rales, rhonchi, unlabored, wheezes Cardiovascular exam: PRESENT: Regular rate rhythm -+S1, +S2. ABSENT: diastolic murmur, systolic murmur GI/Abdominal exam: PRESENT: normal bowel sounds, soft. ABSENT: guarding, mass, tenderness Extremities exam: ABSENT: No edema Neurological exam: PRESENT: alert, awake, oriented to person, place and time. Skin exam: PRESENT: dry, warm, Results Laboratory Results: 07/27/17 05:24 07/27/17 05:24 07/27/17 07/27/17 05:24 05:24 WBC 10.2 RBC 3.63 L Hgb 11.7 L Hct 34.0 L MCV 94 MCH 32.2 MCHC 34.3 RDW 15.2 H Plt Count 135 L Seg Neutrophils % Not Reportable Lymphocytes % Not Reportable Monocytes % Not Reportable Eosinophils % Not Reportable Basophils % Not Reportable Absolute Neutrophils Not Reportable Absolute Lymphocytes Not Reportable Absolute Monocytes Not Reportable Absolute Eosinophils Not Reportable Absolute Basophils Not Reportable Sodium 138.9 Potassium 5.2 H Chloride 108 H Carbon Dioxide 12 L Anion Gap 19 BUN 126 H Creatinine 14.53 H Est GFR ( Amer) 3 L Est GFR (Non-Af Amer) 3 L Glucose 73 L Calcium 8.8 Magnesium 1.7 Total Bilirubin 0.8 AST 37 H ALT 126 H Alkaline Phosphatase 121 Total Protein 5.4 L Albumin 3.1 L Impressions: Chest X-Ray 07/25/17 17:16 IMPRESSION: NO SIGNIFICANT RADIOGRAPHIC FINDING IN THE CHEST. Abdomen Ultrasound 07/25/17 18:32 IMPRESSION: NORMAL ABDOMINAL ULTRASOUND. Assessment & Plan - Diagnosis (1) JASMIN (acute kidney injury) Is this a current diagnosis for this admission?: Yes Plan: Patient does not have significant proteinuria nor microhematuria. No evidence of rhabdomyolysis. She also does not have any hydronephrosis and kidney ultrasound with normal kidney sizes. Patient is making some urine. However her kidney function is not improving as expected this is just due to prerenal azotemia and dehydration. It could initially have been prerenal azotemia which could have progressed to acute tubular necrosis. There is no evidence of acute interstitial nephritis. We will check urine eosinophils. I think the patient' s persistent nausea and vomiting could be also secondary to uremic symptoms because of persistent kidney failure despite IV fluid hydration with at least 7- 8 L at this point. I talked with the patient today regarding need for acute hemodialysis treatment to hopefully help her with some of this uremic symptoms and to hopefully initiate improvement of her of her kidney function. I discussed with her today the process of doing hemodialysis including the need for a temporary trialysis catheter and how dialysis could be beneficial for her. Also explained the risk of trialysis catheter placement and hemodialysis itself including but not limited to bleeding, infection, arrhythmia during dialysis and very rarely cardiac arrest. Patient agreed to proceed. So I have talked to our surgeon wholesale parts salesperson Dr. Pugh for placement of a temporary trialysis catheter. We will plan to do an acute renal replacement therapy with intermittent hemodialysis tomorrow. (2) Nausea vomiting and diarrhea Is this a current diagnosis for this admission?: Yes Plan: This could be initially due to acute gastroenteritis which now could also be due to possible uremic symptoms. (3) URI (upper respiratory infection) Qualifiers: URI type: unspecified viral URI Qualified Code(s): J06.9 - Acute upper respiratory infection, unspecified Is this a current diagnosis for this admission?: Yes Plan: On IV antibiotics. (4) Anemia Is this a current diagnosis for this admission?: Yes Plan: Mild after IV fluids. (5) Hyperkalemia, diminished renal excretion Is this a current diagnosis for this admission?: Yes Plan: Due to acute kidney injury. (6) Metabolic acidosis Is this a current diagnosis for this admission?: Yes Plan: Due to acute kidney injury. Currently on bicarbonate drip. - Notes Notes: Plan discussed with Dr. Rucker from the hospitalist service. She agreed with the plan. - Time Time with patient: Greater than 35 minutes
[2017-07-27] MEDS ORDERED: LIDOCAINE 1% INJ-PF (10 MG/ML) 30 ML SDV IV PRN (20:24)
[2017-07-27] MEDS ORDERED: LORAZEPAM INJ 2 MG/1 ML VIAL ONE (20:44)
[2017-07-27] MEDS ORDERED: FENTANYL CITRATE INJ/PF 100 MCG/2 ML AMPUL ONE (20:50)
[2017-07-27] MEDS ORDERED: LORAZEPAM INJ 2 MG/1 ML VIAL IV ONE (21:25)
[2017-07-27] MEDS ORDERED: FENTANYL CITRATE INJ/PF 100 MCG/2 ML AMPUL IV ONE (21:25)
--- NOTE | 2017-07-27 22:59 | OPERATIVE REPORT E ---
Operative Report NAME: DAVIS BRUCE : 1980 AGE: 36Y DATE OF SURGERY: 07/27/2017 ROOM: 436 PREOPERATIVE DIAGNOSIS: Patient requiring hemodialysis, therefore needed hemodialysis access. POSTOPERATIVE DIAGNOSIS: Patient requiring hemodialysis, therefore needed hemodialysis access. OPERATION: Placement of hemodialysis catheter via the left femoral vein. SURGEON: BRIAN ALLEN M.D. ANESTHESIA: Local MAC. INDICATION: This is a 36-year-old female noted to have elevated BUN, creatinine and with elevated potassium requiring hemodialysis. PROCEDURE: The right groin was then prepped and draped in the usual sterile fashion. With the help of ultrasound attempt was done to puncture the right femoral vein but unfortunately the artery was punctured and therefore the needle was pulled out and pressure applied at the puncture site. This was done after local anesthesia was infiltrated. Pressure was applied for a few minutes. Unfortunately, the vein on the right femoral side was not able to be visualized because of clot formation due to the arterial bleeder. Because of this, the procedure was then transferred to the opposite left leg. The left groin was then prepped and draped in the usual sterile fashion. With use of the ultrasound, the vein was then identified. Local anesthesia infiltrated. Next, the vein was then punctured and guidewire passed through the needle towards the area of the inferior vena cave. The puncture site was enlarged and dilator passed through the guidewire. Next, a 30-cm long hemodialysis catheter was then threaded through the guidewire all the way up close to the hub of the catheter. Next, the phalanges were then anchored to the skin with 3-0 nylon. The three ports of the catheter were aspirated easily and easily injected saline. Prior tothis however, patient was given 2 mg of Ativan and 100 mcg of Fentanyl. Patient did have a lot of pain from the right side because of the arterial puncture. Sterile dressings were then placed over the left femoral vein catheter. Patient tolerated procedure well. Vital signs remain stable though the FiO2 decreased slightly in the 80s but came up in the 98 range after given O2 per nasal cannula, about 2 L. Patient was alert and oriented after completion of the procedure. Patient tolerated procedure quite well. DICTATING PHYSICIAN: BRIAN ALLEN M.D. [id number] PHY#: [id number] ID: [id number] JOB#: [id number] ACCT: [id number] cc:BRIAN ALLEN M.D. > RANDY
[2017-07-28 03:00] LABS: EOSINOPHIL SMEAR NO EOSINOPHILS SEEN; SPECIMEN TYPE URINE
[2017-07-28] MEDS ORDERED: HEPARIN SOD (PORCINE) 1,000 UNIT/ML 10 ML VIAL IV PRN ×3 (05:00→13:42)
[2017-07-28 05:25] LABS: ABSOLUTE EOSINOPHILS # (AUTO) 0.1 10^3/uL (0.0-0.6); ABSOLUTE LYMPHOCYTES (AUTO) 1.5 10^3/uL (0.5-4.7); ABSOLUTE MONOCYTES (AUTO) 1.5 10^3/uL (0.1-1.4); ABSOLUTE NEUT (AUTO) 8.8 10^3/uL (1.7-8.2); BASOPHILS % (AUTO) 0.2 % (0-2); EOSINOPHILS % (AUTO) 0.6 % (0-6); HEMOGLOBIN 10.8 g/dL (12.0-15.5); LYMPHOCYTES % (AUTO) 12.7 % (13-45); MEAN CORPUSCULAR HEMOGLOBIN 31.6 pg (27.0-33.4); MEAN CORPUSCULAR HGB CONC 33.9 g/dL (32.0-36.0); MEAN CORPUSCULAR VOLUME 93 fl (80-97); MONOCYTES % (AUTO) 12.2 % (3-13); PLATELET COUNT 133 10^3/uL (150-450); RED BLOOD COUNT 3.44 10^6/uL (3.72-5.28); RED CELL DISTRIBUTION WIDTH 15.3 % (11.5-14.0); SEGMENTED NEUTROPHILS % (AUTO) 74.3 % (42-78); TOTAL CELLS COUNTED % (AUTO) 100 %; WHITE BLOOD COUNT 11.9 10^3/uL (4.0-10.5)
[2017-07-28 05:42] LABS: ANION GAP 16 (5-19); BLOOD UREA NITROGEN 117 mg/dL (7-20); CALCIUM 8.4 mg/dL (8.4-10.2); CARBON DIOXIDE 20 mmol/L (22-30); CHLORIDE 103 mmol/L (98-107); GLUCOSE 117 mg/dL (75-110)
[2017-07-28 05:56] LABS: POTASSIUM 3.7 mmol/L (3.6-5.0)
[2017-07-28] MEDS: HEPARIN SOD (PORCINE) 5,000 UNIT/ML 1 ML SYRINGE SUBCUT SCH ×2 (06:05→13:52)
[2017-07-28] MEDS: DEXTROSE 5%-WATER 1000 ML 1,000 ML with SODIUM BICARBONATE 150 MEQ IV PRN ×2 (08:28)
--- NOTE | 2017-07-28 12:43 | PDOC PROGRESS REPORT ---
Subjective Progress Note for:: 07/28/17 Subjective:: I am seeing the patient on dialysis today. She says she feels a little bit better with the nausea and vomiting improved today. She said so far she has not vomited and she did eat some breakfast. She is tolerating dialysis except for a little elevated blood pressure. She made a little bit more urine for the last 24 hours from record. She is still complaining of her ear pain in the hospitalist is taking care of that. Otherwise she does not have any other complaints. Reason For Visit: ARF, NAUSEA VOMITING Physical Exam Vital Signs: Temp Pulse Resp BP Pulse Ox 98.1 F 75 14 148/90 H 99 07/28/17 04:08 07/28/17 08:00 07/28/17 08:00 07/28/17 04:08 07/28/17 08:00 Pulse Oximeter Continuous Start: 07/27/17 21: 37 Freq: RTQ4 Status: Complete Document 07/28/17 00:00 STI (Rec: 07/28/17 00:10 STI [email or web address]) Pulse Oximetry Assessment Oxygen Saturation (92-100) 94 Oxygen Delivery Method Room Air Fraction of Inspired Oxygen (FIO2) 21 Equipment Usage Equipment in Use Continuous Pulse Oximeter 24 Hour Charge Charge Now Continuous SpO2 Machine # N-5 Pulse Oximeter Continuous Start: 07/27/17 21: 20 Freq: RTQ2HP Status: Complete Document 07/28/17 02:30 STI (Rec: 07/28/17 02:30 STI [email or web address]) Pulse Oximetry Assessment Oxygen Saturation (92-100) 99 Oxygen Delivery Method Room Air Fraction of Inspired Oxygen (FIO2) 21 Equipment Usage Equipment in Use Continuous SpO2 Machine # N-5 Intake & Output 07/27/17 07/28/17 07/29/17 06:59 06:59 06:59 Intake Total 2654 3041 Output Total 800 1300 Balance 1854 1741 Weight 73.9 kg 73.9 kg Vitals during dialysis at this time: Blood pressure 174/99, heart rate of 66, blood flow rate 250 mL/min, dialysate flow rate 500 mL/min. Exam: General appearance: PRESENT: no acute distress, cooperative, well-developed, well-nourished Head exam: PRESENT: atraumatic, normocephalic Eye exam: PRESENT: conjunctiva slightly pale, PERRLA. ABSENT: scleral icterus Neck exam: ABSENT: JVD Respiratory exam: PRESENT: Normal breath sounds. ABSENT: crackles, rales, rhonchi, unlabored, wheezes Cardiovascular exam: PRESENT: Regular rate rhythm -+S1, +S2. ABSENT: diastolic murmur, systolic murmur GI/Abdominal exam: PRESENT: normal bowel sounds, soft. ABSENT: guarding, mass, tenderness Extremities exam: ABSENT: No edema Neurological exam: PRESENT: alert, awake, oriented to person, place and time. Skin exam: PRESENT: dry, warm, Results Laboratory Results: 07/28/17 05:06 07/28/17 05:06 07/28/17 07/28/17 05:06 05:06 WBC 11.9 H RBC 3.44 L Hgb 10.8 L Hct 32.0 L MCV 93 MCH 31.6 MCHC 33.9 RDW 15.3 H Plt Count 133 L Seg Neutrophils % 74.3 Lymphocytes % 12.7 L Monocytes % 12.2 Eosinophils % 0.6 Basophils % 0.2 Absolute Neutrophils 8.8 H Absolute Lymphocytes 1.5 Absolute Monocytes 1.5 H Absolute Eosinophils 0.1 Absolute Basophils 0.0 Sodium 139.0 Potassium 3.7 D Chloride 103 Carbon Dioxide 20 L Anion Gap 16 BUN 117 H Creatinine 13.39 H Est GFR ( Amer) 4 L Est GFR (Non-Af Amer) 3 L Glucose 117 H Calcium 8.4 Impressions: Chest X-Ray 07/25/17 17:16 IMPRESSION: NO SIGNIFICANT RADIOGRAPHIC FINDING IN THE CHEST. Abdomen Ultrasound 07/25/17 18:32 IMPRESSION: NORMAL ABDOMINAL ULTRASOUND. Assessment & Plan - Diagnosis (1) JASMIN (acute kidney injury) Is this a current diagnosis for this admission?: Yes Plan: Patient does not have significant proteinuria nor microhematuria. No evidence of rhabdomyolysis. She also does not have any hydronephrosis and kidney ultrasound with normal kidney sizes. Patient is making some urine. However her kidney function is not improving as expected this is just due to prerenal azotemia and dehydration. It could initially have been prerenal azotemia which could have progressed to acute tubular necrosis. There is no evidence of acute interstitial nephritis. I think the patient's persistent nausea and vomiting could be also secondary to uremic symptoms because of persistent kidney failure despite IV fluid hydration with at least 7-8 L at this point. Her urine eosinophils is negative. Her urine output is improving. We will do dialysis today for 2.5 hours, using the patient's femoral trialysis catheter, with 3 potassium bath, blood flow rate of 250 mL per minute, dialysate flow rate of 500 mL per minute, ultrafiltration none, no heparin and no Procrit during dialysis. I will reevaluate her tomorrow for further need for hemodialysis treatment. (2) Nausea vomiting and diarrhea Is this a current diagnosis for this admission?: Yes Plan: This could be initially due to acute gastroenteritis which now could also be due to possible uremic symptoms. This seems to be slowly improving today. (3) URI (upper respiratory infection) Qualifiers: URI type: unspecified viral URI Qualified Code(s): J06.9 - Acute upper respiratory infection, unspecified Is this a current diagnosis for this admission?: Yes Plan: On IV antibiotics. (4) Anemia Is this a current diagnosis for this admission?: Yes Plan: Mild after IV fluids. (5) Hyperkalemia, diminished renal excretion Is this a current diagnosis for this admission?: Yes Plan: Due to acute kidney injury. Resolved with bicarb drip. (6) Metabolic acidosis Is this a current diagnosis for this admission?: Yes Plan: Due to acute kidney injury. Improved after the bicarb drip. Discontinue bicarb drip. - Time Time with patient: 15-25 minutes
[2017-07-28] MEDS: CHLORPHENIRAMINE MALEATE 4 MG TABLET PO SCH (13:52)
[2017-07-28] MEDS: CIPROFLOXACIN-HC OTIC SUSP 10 ML AU SCH ×2 (13:52→17:24)
[2017-07-28] MEDS: ONDANSETRON HCL INJ/PF 4 MG/2 ML SDV IV PRN (14:46)
--- NOTE | 2017-07-28 21:25 | PDOC PROGRESS REPORT ---
Subjective Progress Note for:: 07/28/17 Subjective:: 36-year-old woman with history of substance and tobacco abuse presented to the ED on 07/25/2017 with intractable nausea and vomiting associated with subjective fevers. She was found to have a white count of 15, 000 on presentation which has resolved and she remains afebrile. She was found to have acute kidney injury with a BUN of 146, creatinine 18, NA 132, CO2 19. She was seen and examined on dialysis and she reports to have eaten breakfast this am and thus far no vomiting. She continues to report ear pain. Reason For Visit: ARF NAUSEA VOMITING Physical Exam Vital Signs: Temp Pulse Resp BP Pulse Ox 99.3 F 75 13 144/91 H 95 07/28/17 19:39 07/28/17 19:39 07/28/17 19:39 07/28/17 19:39 07/28/17 19:39 Pulse Oximeter Continuous Start: 07/27/17 21: 37 Freq: RTQ4 Status: Complete Document 07/28/17 00:00 STI (Rec: 07/28/17 00:10 STI [email or web address]) Pulse Oximetry Assessment Oxygen Saturation (92-100) 94 Oxygen Delivery Method Room Air Fraction of Inspired Oxygen (FIO2) 21 Equipment Usage Equipment in Use Continuous Pulse Oximeter 24 Hour Charge Charge Now Continuous SpO2 Machine # N-5 Pulse Oximeter Continuous Start: 07/27/17 21: 20 Freq: RTQ2HP Status: Complete Document 07/28/17 02:30 STI (Rec: 07/28/17 02:30 STI [email or web address]) Pulse Oximetry Assessment Oxygen Saturation (92-100) 99 Oxygen Delivery Method Room Air Fraction of Inspired Oxygen (FIO2) 21 Equipment Usage Equipment in Use Continuous SpO2 Machine # N-5 Intake & Output 07/27/17 07/28/17 07/29/17 06:59 06:59 06:59 Intake Total 2654 3041 570 Output Total 800 1300 2200 Balance 1854 1741 -1630 Weight 73.9 kg 73.9 kg General appearance: PRESENT: no acute distress Head exam: PRESENT: atraumatic, normocephalic Eye exam: PRESENT: EOMI Ear exam: PRESENT: other - cloudy and erythematous tympanic membranes Mouth exam: PRESENT: moist Neck exam: PRESENT: full ROM Respiratory exam: PRESENT: clear to auscultation mary, unlabored Cardiovascular exam: PRESENT: RRR GI/Abdominal exam: PRESENT: normal bowel sounds, soft Rectal exam: PRESENT: deferred Extremities exam: PRESENT: full ROM Musculoskeletal exam: PRESENT: ambulatory, full ROM Neurological exam: PRESENT: alert, oriented to person, oriented to time, oriented to situation Psychiatric exam: PRESENT: appropriate affect Skin exam: PRESENT: dry, warm Results Laboratory Results: 07/28/17 05:06 07/28/17 05:06 07/28/17 07/28/17 05:06 05:06 WBC 11.9 H RBC 3.44 L Hgb 10.8 L Hct 32.0 L MCV 93 MCH 31.6 MCHC 33.9 RDW 15.3 H Plt Count 133 L Seg Neutrophils % 74.3 Lymphocytes % 12.7 L Monocytes % 12.2 Eosinophils % 0.6 Basophils % 0.2 Absolute Neutrophils 8.8 H Absolute Lymphocytes 1.5 Absolute Monocytes 1.5 H Absolute Eosinophils 0.1 Absolute Basophils 0.0 Sodium 139.0 Potassium 3.7 D Chloride 103 Carbon Dioxide 20 L Anion Gap 16 BUN 117 H Creatinine 13.39 H Est GFR ( Amer) 4 L Est GFR (Non-Af Amer) 3 L Glucose 117 H Calcium 8.4 Impressions: Chest X-Ray 07/25/17 17:16 IMPRESSION: NO SIGNIFICANT RADIOGRAPHIC FINDING IN THE CHEST. Abdomen Ultrasound 07/25/17 18:32 IMPRESSION: NORMAL ABDOMINAL ULTRASOUND. Assessment & Plan - Diagnosis (1) JASMIN (acute kidney injury) Is this a current diagnosis for this admission?: Yes Plan: Nonoliguric .This is likely prerenal. She did have an abdominal ultrasound without evidence of hydronephrosis. Seen and evaluated by nephrology. Dialysis per renal. (2) Nausea vomiting and diarrhea Is this a current diagnosis for this admission?: Yes Plan: Supportive care Anti-emetics as needed (3) URI (upper respiratory infection) Qualifiers: URI type: unspecified viral URI Qualified Code(s): J06.9 - Acute upper respiratory infection, unspecified Is this a current diagnosis for this admission?: Yes Plan: Continue current management Discontinue ceftriaxone (4) Tobacco abuse Is this a current diagnosis for this admission?: Yes Plan: Nicotine replacement (5) Metabolic acidosis Is this a current diagnosis for this admission?: Yes Plan: Discontinue bicarb drips (6) Hyperkalemia, diminished renal excretion Is this a current diagnosis for this admission?: Yes Plan: Resolved (7) Acute ear pain Qualifiers: Laterality: bilateral Qualified Code(s): H92.03 - Otalgia, bilateral Is this a current diagnosis for this admission?: Yes Plan: On Cipro ear drops and add amoxicillin (8) DVT prophylaxis Is this a current diagnosis for this admission?: Yes Plan: Ambulatory - Time Time Spent with patient: 25-34 minutes Within: Other - when medically ready - Inpatient Certification Medical Necessity: Need Close Monitoring Due to Risk of Patient Decompensation - renal replacement for JASMIN
[2017-07-29] MEDS: ACETAMINOPHEN 325 MG TABLET PO PRN ×2 (00:20→16:12)
[2017-07-29] MEDS: AMOXICILLIN TRIHYDRATE 500 MG CAPSULE PO SCH ×2 (00:21→09:08)
[2017-07-29] MEDS: HEPARIN SOD (PORCINE) 5,000 UNIT/ML 1 ML SYRINGE SUBCUT SCH ×4 (00:21→22:42)
[2017-07-29 07:00] LABS: ANION GAP 11 (5-19); BLOOD UREA NITROGEN 51 mg/dL (7-20); CALCIUM 8.2 mg/dL (8.4-10.2); CARBON DIOXIDE 26 mmol/L (22-30); CHLORIDE 102 mmol/L (98-107); GLUCOSE 119 mg/dL (75-110); POTASSIUM 3.2 mmol/L (3.6-5.0); SODIUM 138.5 mmol/L (137-145)
[2017-07-29] MEDS: ONDANSETRON HCL INJ/PF 4 MG/2 ML SDV IV PRN (08:57)
[2017-07-29] MEDS ORDERED: POTASSIUM CHLORIDE 10 MEQ TABLET.SA PO ONE (09:00)
[2017-07-29] MEDS: CHLORPHENIRAMINE MALEATE 4 MG TABLET PO SCH (09:10)
[2017-07-29] MEDS: CIPROFLOXACIN-HC OTIC SUSP 10 ML AU SCH ×2 (09:18→17:51)
[2017-07-29] MEDS ORDERED: NORMAL SALINE 1000 ML 1,000 ML IV PRN (11:39)
[2017-07-29] MEDS ORDERED: HEPARIN SOD (PORCINE) 1,000 UNIT/ML 10 ML VIAL IV PRN (11:39)
--- NOTE | 2017-07-29 13:51 | PDOC PROGRESS REPORT ---
Subjective Progress Note for:: 07/29/17 Subjective:: The patient is a 36-year-old female who recently received antibiotics for an upper respiratory tract infection that included sinusitis and otitis. She presented to the hospital on 07/25/2017 with intractable nausea and vomiting and she was found to have evidence of severe acute kidney injury. She is currently receiving as needed dialysis. Today, her main complaint is that she is unable to hear very well. She feels like there is fluid in her ears. Her right ear has been draining minimal amounts of purulent fluid. She had one episode of vomiting today. She has been able to keep down some liquids, however. She does not have any diarrhea. Reason For Visit: ARF NAUSEA VOMITING Physical Exam Vital Signs: Temp Pulse Resp BP Pulse Ox 98.3 F 78 16 133/87 H 99 07/29/17 11:15 07/29/17 11:15 07/29/17 11:15 07/29/17 11:15 07/29/17 11:15 Pulse Oximeter Continuous Start: 07/27/17 21: 37 Freq: RTQ4 Status: Complete Document 07/28/17 00:00 STI (Rec: 07/28/17 00:10 STI [email or web address]) Pulse Oximetry Assessment Oxygen Saturation (92-100) 94 Oxygen Delivery Method Room Air Fraction of Inspired Oxygen (FIO2) 21 Equipment Usage Equipment in Use Continuous Pulse Oximeter 24 Hour Charge Charge Now Continuous SpO2 Machine # N-5 Pulse Oximeter Continuous Start: 07/27/17 21: 20 Freq: RTQ2HP Status: Complete Document 07/28/17 02:30 STI (Rec: 07/28/17 02:30 STI [email or web address]) Pulse Oximetry Assessment Oxygen Saturation (92-100) 99 Oxygen Delivery Method Room Air Fraction of Inspired Oxygen (FIO2) 21 Equipment Usage Equipment in Use Continuous SpO2 Machine # N-5 Intake & Output 07/28/17 07/29/17 07/30/17 06:59 06:59 06:59 Intake Total 3041 1390 Output Total 1300 3800 Balance 1741 -2410 Weight 73.9 kg Additional comments: The patient appears to be her stated age. In general, I would say that she appears to be fairly healthy. Her facial appearance is unremarkable. Otoscopic exam does show that her right ear has some whitish matter in the external canal. The left ear has significant scarring of the tympanic membranes. She has multiple white patches over the tympanic membrane. The lungs are clear to auscultation bilaterally. The cardiac exam is regular without murmurs, gallops or rubs. The abdomen is soft, flat and benign. The lower extremities are unremarkable. She does not appear to have any pitting edema. The skin demonstrates multiple tattoos but no evidence of acute skin lesions, rashes or infection. Results Laboratory Results: 07/28/17 05:06 07/29/17 06:13 07/29/17 06:13 Sodium 138.5 Potassium 3.2 L Chloride 102 Carbon Dioxide 26 Anion Gap 11 BUN 51 H Creatinine 7.84 H Est GFR ( Amer) 7 L Est GFR (Non-Af Amer) 6 L Glucose 119 H Calcium 8.2 L Impressions: Chest X-Ray 07/25/17 17:16 IMPRESSION: NO SIGNIFICANT RADIOGRAPHIC FINDING IN THE CHEST. Abdomen Ultrasound 07/25/17 18:32 IMPRESSION: NORMAL ABDOMINAL ULTRASOUND. Assessment & Plan - Diagnosis (1) JASMIN (acute kidney injury) Is this a current diagnosis for this admission?: Yes Plan: Continue management per nephrology. (2) Acute ear pain Qualifiers: Laterality: bilateral Qualified Code(s): H92.03 - Otalgia, bilateral Is this a current diagnosis for this admission?: Yes Plan: Continue eardrops. Patient will require ENT evaluation. There is no one restaurant crew person today so I will not place a consultation at this time. (3) DVT prophylaxis Is this a current diagnosis for this admission?: Yes Plan: Continue ambulation. (4) Hyperkalemia, diminished renal excretion Is this a current diagnosis for this admission?: Yes Plan: Resolved. Potassium was replaced this morning. (5) Metabolic acidosis Is this a current diagnosis for this admission?: Yes Plan: Resolved. (6) Nausea vomiting and diarrhea Is this a current diagnosis for this admission?: Yes Plan: Continue supportive care (7) Tobacco abuse Is this a current diagnosis for this admission?: Yes (8) URI (upper respiratory infection) Qualifiers: URI type: unspecified viral URI Qualified Code(s): J06.9 - Acute upper respiratory infection, unspecified Is this a current diagnosis for this admission?: Yes Plan: The patient did have mild leukocytosis upon admission, but, she does not clinically appear to have any infection in her chest x-ray is clear. Therefore , at this time going to stop IV antibiotics and continue the eardrops with antibiotics only. Will follow. - Time Time Spent with patient: 25-34 minutes - Inpatient Certification Medical Necessity: Failure to Improve With Outpatient Therapy, Risk of Complication if Not Cared For in Hospital, Risk of Diagnosis Which Will Require Inpatient Eval/Care/Monitoring
--- NOTE | 2017-07-29 15:24 | PDOC PROGRESS REPORT ---
Subjective Progress Note for:: 07/29/17 Subjective:: I am seeing the patient during dialysis this afternoon. She is still nauseous a little bit and she said she vomited one time today. Her main problem and concern are her ears with worsening bilateral hearing loss. The hospitalist service has been treating this. Her urine output started to peak yesterday. I told her this is a good sign and hopefully her kidney function will continue to improve. She also has slight headache. Otherwise she is tolerating dialysis well without any other concerns. Reason For Visit: ARF NAUSEA VOMITING Physical Exam Vital Signs: Temp Pulse Resp BP Pulse Ox 98.3 F 78 16 133/87 H 99 07/29/17 11:15 07/29/17 11:15 07/29/17 11:15 07/29/17 11:15 07/29/17 11:15 Pulse Oximeter Continuous Start: 07/27/17 21: 37 Freq: RTQ4 Status: Complete Document 07/28/17 00:00 STI (Rec: 07/28/17 00:10 STI [email or web address]) Pulse Oximetry Assessment Oxygen Saturation (92-100) 94 Oxygen Delivery Method Room Air Fraction of Inspired Oxygen (FIO2) 21 Equipment Usage Equipment in Use Continuous Pulse Oximeter 24 Hour Charge Charge Now Continuous SpO2 Machine # N-5 Pulse Oximeter Continuous Start: 07/27/17 21: 20 Freq: RTQ2HP Status: Complete Document 07/28/17 02:30 STI (Rec: 07/28/17 02:30 STI [email or web address]) Pulse Oximetry Assessment Oxygen Saturation (92-100) 99 Oxygen Delivery Method Room Air Fraction of Inspired Oxygen (FIO2) 21 Equipment Usage Equipment in Use Continuous SpO2 Machine # N-5 Intake & Output 07/28/17 07/29/17 07/30/17 06:59 06:59 06:59 Intake Total 3041 1390 843 Output Total 1300 3800 1100 Balance 7860 -5010 -381 Weight 73.9 kg Vitals during dialysis: Blood pressure 167/98, heart rate of 73, blood flow rate 250 mL/min, dialysate flow rate 500 mL/min. Exam: General appearance: [PRESENT: no acute distress, cooperative, well-developed, well-nourished] Head exam: [PRESENT: atraumatic, normocephalic, patient has decreased hearing] Eye exam: [PRESENT: conjunctiva pink, PERRLA. ABSENT: scleral icterus] Neck exam: [ABSENT: JVD] Respiratory exam: [PRESENT: Normal breath sounds. ABSENT: crackles, rales, rhonchi, unlabored, wheezes] Cardiovascular exam: [PRESENT: Regular rate rhythm -+S1, +S2. ABSENT: diastolic murmur, systolic murmur] GI/Abdominal exam: [PRESENT: normal bowel sounds, soft. ABSENT: guarding, mass , tenderness] Extremities exam: [ABSENT: No edema] Neurological exam: [PRESENT: alert, awake, oriented to person, place and time.] Skin exam: [PRESENT: dry, warm,] Results Laboratory Results: 07/28/17 05:06 07/29/17 06:13 07/29/17 06:13 Sodium 138.5 Potassium 3.2 L Chloride 102 Carbon Dioxide 26 Anion Gap 11 BUN 51 H Creatinine 7.84 H Est GFR ( Amer) 7 L Est GFR (Non-Af Amer) 6 L Glucose 119 H Calcium 8.2 L Impressions: Chest X-Ray 07/25/17 17:16 IMPRESSION: NO SIGNIFICANT RADIOGRAPHIC FINDING IN THE CHEST. Abdomen Ultrasound 07/25/17 18:32 IMPRESSION: NORMAL ABDOMINAL ULTRASOUND. Assessment & Plan - Diagnosis (1) JASMIN (acute kidney injury) Is this a current diagnosis for this admission?: Yes Plan: Patient does not have significant proteinuria nor microhematuria. No evidence of rhabdomyolysis. She also does not have any hydronephrosis and kidney ultrasound with normal kidney sizes. Patient is making some urine. However her kidney function is not improving as expected this is just due to prerenal azotemia and dehydration. It could initially have been prerenal azotemia which could have progressed to acute tubular necrosis. There is no evidence of acute interstitial nephritis. I think the patient's persistent nausea and vomiting could be also secondary to uremic symptoms because of persistent kidney failure despite IV fluid hydration with at least 7-8 L at this point. Her urine eosinophils is negative. Her urine output is much improved yesterday and today. We will do dialysis today for 2.5 hours, using the patient's femoral trialysis catheter, with 3 potassium bath, blood flow rate of 250 mL per minute, dialysate flow rate of 500 mL per minute, ultrafiltration none, no heparin and no Procrit during dialysis. I am hoping that over the weekend she will continue to have renal recovery. We will reevaluate on Tuesday if she needs further dialysis treatment. (2) Nausea vomiting and diarrhea Is this a current diagnosis for this admission?: Yes Plan: This could be initially due to acute gastroenteritis which now could also be due to possible uremic symptoms. This seems to be slowly improving today. (3) URI (upper respiratory infection) Qualifiers: URI type: unspecified viral URI Qualified Code(s): J06.9 - Acute upper respiratory infection, unspecified Is this a current diagnosis for this admission?: Yes Plan: On IV antibiotics. (4) Anemia Is this a current diagnosis for this admission?: Yes Plan: Mild after IV fluids. (5) Metabolic acidosis Is this a current diagnosis for this admission?: Yes Plan: Due to acute kidney injury. Resolved with dialysis. (6) Hypokalemia Is this a current diagnosis for this admission?: Yes Plan: We are using 3 potassium bath during dialysis today. She may need additional potassium supplement if continues to be low. (7) Acute ear pain Qualifiers: Laterality: bilateral Qualified Code(s): H92.03 - Otalgia, bilateral Is this a current diagnosis for this admission?: Yes Plan: Associated with hearing loss which is worsening. Defer to hospitalist. - Time Time with patient: 15-25 minutes
[2017-07-30] MEDS: HEPARIN SOD (PORCINE) 5,000 UNIT/ML 1 ML SYRINGE SUBCUT SCH ×3 (07:42→22:57)
[2017-07-30 08:10] LABS: ABSOLUTE BASOPHILS # (AUTO) 0.1 10^3/uL (0.0-0.2); ABSOLUTE EOSINOPHILS # (AUTO) 0.2 10^3/uL (0.0-0.6); ABSOLUTE MONOCYTES (AUTO) 1.9 10^3/uL (0.1-1.4); ABSOLUTE NEUT (AUTO) 10.4 10^3/uL (1.7-8.2); BASOPHILS % (AUTO) 0.4 % (0-2); EOSINOPHILS % (AUTO) 1.2 % (0-6); HEMATOCRIT 28.4 % (36.0-47.0); HEMOGLOBIN 9.6 g/dL (12.0-15.5); LYMPHOCYTES % (AUTO) 13.9 % (13-45); MEAN CORPUSCULAR HEMOGLOBIN 31.7 pg (27.0-33.4); MEAN CORPUSCULAR HGB CONC 33.9 g/dL (32.0-36.0); MEAN CORPUSCULAR VOLUME 94 fl (80-97); MONOCYTES % (AUTO) 13.2 % (3-13); PLATELET COUNT 136 10^3/uL (150-450); RED BLOOD COUNT 3.03 10^6/uL (3.72-5.28); RED CELL DISTRIBUTION WIDTH 14.8 % (11.5-14.0); SEGMENTED NEUTROPHILS % (AUTO) 71.3 % (42-78); TOTAL CELLS COUNTED % (AUTO) 100 %; WHITE BLOOD COUNT 14.6 10^3/uL (4.0-10.5)
[2017-07-30 08:28] LABS: ANION GAP 9 (5-19); BLOOD UREA NITROGEN 22 mg/dL (7-20); CALCIUM 8.5 mg/dL (8.4-10.2); CARBON DIOXIDE 30 mmol/L (22-30); CHLORIDE 100 mmol/L (98-107); GLUCOSE 84 mg/dL (75-110); PHOSPHORUS 3.5 mg/dL (2.5-4.5); POTASSIUM 3.6 mmol/L (3.6-5.0); SODIUM 139.2 mmol/L (137-145)
[2017-07-30] MEDS: CIPROFLOXACIN-HC OTIC SUSP 10 ML AU SCH ×2 (09:55→17:01)
[2017-07-30] MEDS: CHLORPHENIRAMINE MALEATE 4 MG TABLET PO SCH (09:55)
--- NOTE | 2017-07-30 15:54 | PDOC PROGRESS REPORT ---
Subjective Progress Note for:: 07/30/17 Subjective:: The patient is a 36-year-old female who recently received antibiotics for an upper respiratory tract infection that included sinusitis and otitis. She presented to the hospital on 07/25/2017 with intractable nausea and vomiting and she was found to have evidence of severe acute kidney injury. She is currently receiving as needed dialysis. Her nausea and vomiting has improved substantially over the last 24 hours. She also feels that her hearing has improved. She is complaining of some drainage again from the right ear. Reason For Visit: ARF NAUSEA VOMITING Physical Exam Vital Signs: Temp Pulse Resp BP Pulse Ox 98.1 F 80 17 142/90 H 98 07/30/17 11:36 07/30/17 14:00 07/30/17 11:36 07/30/17 11:36 07/30/17 11:36 Pulse Oximeter Continuous Start: 07/27/17 21: 37 Freq: RTQ4 Status: Complete Document 07/28/17 00:00 STI (Rec: 07/28/17 00:10 STI [email or web address]) Pulse Oximetry Assessment Oxygen Saturation (92-100) 94 Oxygen Delivery Method Room Air Fraction of Inspired Oxygen (FIO2) 21 Equipment Usage Equipment in Use Continuous Pulse Oximeter 24 Hour Charge Charge Now Continuous SpO2 Machine # N-5 Pulse Oximeter Continuous Start: 07/27/17 21: 20 Freq: RTQ2HP Status: Complete Document 07/28/17 02:30 STI (Rec: 07/28/17 02:30 STI [email or web address]) Pulse Oximetry Assessment Oxygen Saturation (92-100) 99 Oxygen Delivery Method Room Air Fraction of Inspired Oxygen (FIO2) 21 Equipment Usage Equipment in Use Continuous SpO2 Machine # N-5 Intake & Output 07/29/17 07/30/17 07/31/17 06:59 06:59 07:59 Intake Total 1390 1098 Output Total 3800 1450 Balance -2410 -352 Weight 74.3 kg Additional comments: The patient appears to be healthy, young female. She is not in any distress. Her cognition and mentation are appropriate. Her facial appearance is unremarkable. I did not reevaluate her tympanic membranes or ear canals today. Her lungs are clear to auscultation bilaterally. Her cardiac exam is regular without murmurs, gallops or rubs. The abdomen is soft and flat. Bowel sounds are noted in the lower quadrants. She does not have guarding or rebound noted and there are no hernias or masses present. The lower extremities are unremarkable. The skin is clean, warm, dry and intact. Results Laboratory Results: 07/30/17 07:42 07/30/17 07:42 07/30/17 07/30/17 07:42 07:42 WBC 14.6 H RBC 3.03 L Hgb 9.6 L Hct 28.4 L MCV 94 MCH 31.7 MCHC 33.9 RDW 14.8 H Plt Count 136 L Seg Neutrophils % 71.3 Lymphocytes % 13.9 Monocytes % 13.2 H Eosinophils % 1.2 Basophils % 0.4 Absolute Neutrophils 10.4 H Absolute Lymphocytes 2.0 Absolute Monocytes 1.9 H Absolute Eosinophils 0.2 Absolute Basophils 0.1 Sodium 139.2 Potassium 3.6 Chloride 100 Carbon Dioxide 30 Anion Gap 9 BUN 22 H Creatinine 4.16 H Est GFR ( Amer) 15 L Est GFR (Non-Af Amer) 12 L Glucose 84 Calcium 8.5 Phosphorus 3.5 Magnesium 1.4 L Impressions: Chest X-Ray 07/25/17 17:16 IMPRESSION: NO SIGNIFICANT RADIOGRAPHIC FINDING IN THE CHEST. Abdomen Ultrasound 07/25/17 18:32 IMPRESSION: NORMAL ABDOMINAL ULTRASOUND. Assessment & Plan - Diagnosis (1) JASMIN (acute kidney injury) Is this a current diagnosis for this admission?: Yes Plan: Continue management per nephrology. Patient is making a lot of urine and her labs are improving. I told her this is a really good sign. (2) Acute ear pain Qualifiers: Laterality: bilateral Qualified Code(s): H92.03 - Otalgia, bilateral Is this a current diagnosis for this admission?: Yes Plan: Continue eardrops. Patient will require ENT evaluation. There is no one bow maker production for ENT so I will not place a consultation at this time. Patient has been told that she will need ENT evaluation and this will likely need to occur after discharge. (3) DVT prophylaxis Is this a current diagnosis for this admission?: Yes Plan: Continue ambulation. (4) Hyperkalemia, diminished renal excretion Is this a current diagnosis for this admission?: Yes Plan: Resolved. (5) Metabolic acidosis Is this a current diagnosis for this admission?: Yes Plan: Resolved. (6) Nausea vomiting and diarrhea Is this a current diagnosis for this admission?: Yes Plan: Continue supportive care (7) Tobacco abuse Is this a current diagnosis for this admission?: Yes (8) URI (upper respiratory infection) Qualifiers: URI type: unspecified viral URI Qualified Code(s): J06.9 - Acute upper respiratory infection, unspecified Is this a current diagnosis for this admission?: Yes Plan: The patient did have mild leukocytosis upon admission, but, she does not clinically appear to have any infection in her chest x-ray is clear. I discontinued IV antibiotics but I did continue the eardrops with antibiotics - Time Time Spent with patient: 15-24 minutes - Inpatient Certification Medical Necessity: Risk of Complication if Not Cared For in Hospital - Plan Summary Plan Summary: Discharge is anticipated possibly Tuesday or Tuesday. Patient continues to have a left femoral vein dialysis catheter in place which will need to be removed prior to discharge.
[2017-07-30] MEDS: MAGNESIUM OXIDE 400 MG TABLET PO SCH (16:59)
[2017-07-30] MEDS: MAGNESIUM SULFATE/D5W 1 GM/100 ML RTUPB IV SCH ×3 (17:00→19:18)
[2017-07-30] MEDS: ACETAMINOPHEN 325 MG TABLET PO PRN (23:35)
[2017-07-31] MEDS: HEPARIN SOD (PORCINE) 5,000 UNIT/ML 1 ML SYRINGE SUBCUT SCH ×2 (05:43→14:10)
[2017-07-31 07:13] LABS: ANION GAP 9 (5-19); BLOOD UREA NITROGEN 21 mg/dL (7-20); CALCIUM 8.7 mg/dL (8.4-10.2); CARBON DIOXIDE 30 mmol/L (22-30); CHLORIDE 99 mmol/L (98-107); GLUCOSE 93 mg/dL (75-110); POTASSIUM 3.2 mmol/L (3.6-5.0); SODIUM 137.9 mmol/L (137-145)
[2017-07-31] MEDS: MAGNESIUM OXIDE 400 MG TABLET PO SCH ×3 (08:49→17:15)
[2017-07-31] MEDS: CHLORPHENIRAMINE MALEATE 4 MG TABLET PO SCH (09:19)
[2017-07-31] MEDS ORDERED: POTASSIUM CHLORIDE 10 MEQ TABLET.SA PO ONE (10:30)
[2017-07-31] MEDS: DIPHENHYDRAMINE HCL 25 MG CAPSULE PO PRN ×2 (13:51→19:47)
--- NOTE | 2017-07-31 14:36 | PDOC PROGRESS REPORT ---
Subjective Progress Note for:: 07/31/17 Subjective:: The patient is a 36-year-old female who recently received antibiotics for an upper respiratory tract infection that included sinusitis and otitis. She presented to the hospital on 07/25/2017 with intractable nausea and vomiting and she was found to have evidence of severe acute kidney injury. She is currently receiving as needed dialysis. Her nausea and vomiting has improved substantially. She also feels that her hearing has improved. She continues to complain of drainage again from the right ear. Reason For Visit: ARF NAUSEA VOMITING Physical Exam Vital Signs: Temp Pulse Resp BP Pulse Ox 98.4 F 83 18 131/87 H 99 07/31/17 12:00 07/31/17 12:00 07/31/17 12:00 07/31/17 12:00 07/31/17 12:00 Pulse Oximeter Continuous Start: 07/27/17 21: 37 Freq: RTQ4 Status: Complete Document 07/28/17 00:00 STI (Rec: 07/28/17 00:10 STI [email or web address]) Pulse Oximetry Assessment Oxygen Saturation (92-100) 94 Oxygen Delivery Method Room Air Fraction of Inspired Oxygen (FIO2) 21 Equipment Usage Equipment in Use Continuous Pulse Oximeter 24 Hour Charge Charge Now Continuous SpO2 Machine # N-5 Pulse Oximeter Continuous Start: 07/27/17 21: 20 Freq: RTQ2HP Status: Complete Document 07/28/17 02:30 STI (Rec: 07/28/17 02:30 STI [email or web address]) Pulse Oximetry Assessment Oxygen Saturation (92-100) 99 Oxygen Delivery Method Room Air Fraction of Inspired Oxygen (FIO2) 21 Equipment Usage Equipment in Use Continuous SpO2 Machine # N-5 Intake & Output 07/30/17 07/31/17 08/01/17 05:59 06:59 06:59 Intake Total Output Total Balance Weight Additional comments: The patient was in good spirits today. Her hearing appears to be improving. She is not speaking as loud. Her facial appearance is unremarkable. Her lungs are clear anteriorly but she does have a few crackles in the posterior lung foley at the bases. Her cardiac exam is regular without murmurs, gallops or rubs. The abdomen is soft and flat. Bowel sounds are noted. She does not have guarding or rebound noted. The left femoral dialysis catheter does have some bleeding around the site but only minimally so. It otherwise looks good. The lower extremities are without edema. The skin is clean, warm, dry and intact. Results Laboratory Results: 07/30/17 07:42 07/31/17 06:40 07/31/17 07/31/17 06:40 06:40 Sodium 137.9 Potassium 3.2 L Chloride 99 Carbon Dioxide 30 Anion Gap 9 BUN 21 H Creatinine 4.60 H Est GFR ( Amer) 13 L Est GFR (Non-Af Amer) 11 L Glucose 93 Calcium 8.7 Magnesium 2.2 07/26/17 05:22 Blood Blood Culture - Final NO GROWTH IN 5 DAYS 07/26/17 04:13 Blood Blood Culture - Final NO GROWTH IN 5 DAYS Impressions: Chest X-Ray 07/25/17 17:16 IMPRESSION: NO SIGNIFICANT RADIOGRAPHIC FINDING IN THE CHEST. Abdomen Ultrasound 07/25/17 18:32 IMPRESSION: NORMAL ABDOMINAL ULTRASOUND. Assessment & Plan - Diagnosis (1) JASMIN (acute kidney injury) Is this a current diagnosis for this admission?: Yes Plan: Continue management per nephrology. Patient is making a lot of urine and her labs are improving. I told her this is a really good sign. (2) Acute ear pain Qualifiers: Laterality: bilateral Qualified Code(s): H92.03 - Otalgia, bilateral Is this a current diagnosis for this admission?: Yes Plan: Continue eardrops. Patient will require ENT evaluation. There is no one manager operations for ENT so I will not place a consultation at this time. Patient has been told that she will need ENT evaluation and this will likely need to occur after discharge. (3) DVT prophylaxis Is this a current diagnosis for this admission?: Yes Plan: Continue ambulation. (4) Hyperkalemia, diminished renal excretion Is this a current diagnosis for this admission?: Yes Plan: Resolved. Patient now requires supplementation. (5) Metabolic acidosis Is this a current diagnosis for this admission?: Yes Plan: Resolved. (6) Nausea vomiting and diarrhea Is this a current diagnosis for this admission?: Yes Plan: Continue supportive care (7) Tobacco abuse Is this a current diagnosis for this admission?: Yes (8) URI (upper respiratory infection) Qualifiers: URI type: unspecified viral URI Qualified Code(s): J06.9 - Acute upper respiratory infection, unspecified Is this a current diagnosis for this admission?: Yes Plan: The patient did have mild leukocytosis upon admission, but, she does not clinically appear to have any infection in her chest x-ray is clear. Therefore , I stopped the amoxicillin that she was on on Tuesday. However, she now has a mild leukocytosis. I am going to restart ceftriaxone. The trials his catheter site looks good but I will try to cover skin bertin and upper respiratory bertin. - Time Time Spent with patient: 15-24 minutes - Inpatient Certification Medical Necessity: Significant Comorbidiites Make Outpatient Treatment Too Risky , Need Close Monitoring Due to Risk of Patient Decompensation, Need for IV Antibiotics, Risk of Complication if Not Cared For in Hospital, Risk of Diagnosis Which Will Require Inpatient Eval/Care/Monitoring
[2017-07-31] MEDS ORDERED: CEFTRIAXONE 1 GM/D5W RTU 50 ML IV SCH (15:00)
[2017-07-31 15:55] LABS: ABSOLUTE BASOPHILS # (AUTO) 0.1 10^3/uL (0.0-0.2); ABSOLUTE EOSINOPHILS # (AUTO) 0.1 10^3/uL (0.0-0.6); ABSOLUTE LYMPHOCYTES (AUTO) 1.9 10^3/uL (0.5-4.7); ABSOLUTE MONOCYTES (AUTO) 1.3 10^3/uL (0.1-1.4); ABSOLUTE NEUT (AUTO) 10.1 10^3/uL (1.7-8.2); BASOPHILS % (AUTO) 0.8 % (0-2); HEMATOCRIT 29.3 % (36.0-47.0); HEMOGLOBIN 9.9 g/dL (12.0-15.5); MEAN CORPUSCULAR HEMOGLOBIN 31.5 pg (27.0-33.4); MEAN CORPUSCULAR HGB CONC 33.9 g/dL (32.0-36.0); MEAN CORPUSCULAR VOLUME 93 fl (80-97); MONOCYTES % (AUTO) 9.4 % (3-13); PLATELET COUNT 179 10^3/uL (150-450); RED BLOOD COUNT 3.14 10^6/uL (3.72-5.28); RED CELL DISTRIBUTION WIDTH 15.3 % (11.5-14.0); SEGMENTED NEUTROPHILS % (AUTO) 74.8 % (42-78); TOTAL CELLS COUNTED % (AUTO) 100 %; WHITE BLOOD COUNT 13.5 10^3/uL (4.0-10.5)
[2017-07-31] MEDS: CEFTRIAXONE SODIUM 1,000 MG in NORMAL SALINE 100 ML IV SCH (16:08)
[2017-07-31] MEDS: CIPROFLOXACIN-HC OTIC SUSP 10 ML AU SCH (17:15)
[2017-07-31] MEDS: ACETAMINOPHEN 325 MG TABLET PO PRN (19:17)
[2017-08-01 05:47] LABS: ABSOLUTE BASOPHILS # (AUTO) 0.1 10^3/uL (0.0-0.2); ABSOLUTE EOSINOPHILS # (AUTO) 0.2 10^3/uL (0.0-0.6); ABSOLUTE LYMPHOCYTES (AUTO) 1.9 10^3/uL (0.5-4.7); ABSOLUTE MONOCYTES (AUTO) 1.4 10^3/uL (0.1-1.4); BASOPHILS % (AUTO) 0.8 % (0-2); EOSINOPHILS % (AUTO) 1.8 % (0-6); HEMATOCRIT 29.7 % (36.0-47.0); MEAN CORPUSCULAR HEMOGLOBIN 31.6 pg (27.0-33.4); MEAN CORPUSCULAR HGB CONC 33.7 g/dL (32.0-36.0); MEAN CORPUSCULAR VOLUME 94 fl (80-97); MONOCYTES % (AUTO) 11.2 % (3-13); PLATELET COUNT 236 10^3/uL (150-450); RED BLOOD COUNT 3.17 10^6/uL (3.72-5.28); RED CELL DISTRIBUTION WIDTH 15.2 % (11.5-14.0); SEGMENTED NEUTROPHILS % (AUTO) 71.2 % (42-78); TOTAL CELLS COUNTED % (AUTO) 100 %; WHITE BLOOD COUNT 12.6 10^3/uL (4.0-10.5)
[2017-08-01 06:05] LABS: ANION GAP 11 (5-19); BLOOD UREA NITROGEN 24 mg/dL (7-20); CALCIUM 9.4 mg/dL (8.4-10.2); CARBON DIOXIDE 28 mmol/L (22-30); CHLORIDE 99 mmol/L (98-107); GLUCOSE 87 mg/dL (75-110); SODIUM 137.9 mmol/L (137-145)
[2017-08-01] MEDS: MAGNESIUM OXIDE 400 MG TABLET PO SCH ×3 (09:10→16:15)
[2017-08-01] MEDS: CHLORPHENIRAMINE MALEATE 4 MG TABLET PO SCH (09:10)
[2017-08-01] MEDS: CIPROFLOXACIN-HC OTIC SUSP 10 ML AU SCH ×2 (09:11→17:26)
[2017-08-01] MEDS: DIPHENHYDRAMINE HCL 25 MG CAPSULE PO PRN ×2 (10:58→16:30)
[2017-08-01] MEDS: CEFTRIAXONE SODIUM 1,000 MG in NORMAL SALINE 100 ML IV SCH (16:24)
[2017-08-01] MEDS: ACETAMINOPHEN 325 MG TABLET PO PRN (17:33)
--- NOTE | 2017-08-01 18:38 | PDOC PROGRESS REPORT ---
Subjective Progress Note for:: 08/01/17 Subjective:: The patient is a 36-year-old female who recently received antibiotics for an upper respiratory tract infection that included sinusitis and otitis. She presented to the hospital on 07/25/2017 with intractable nausea and vomiting and she was found to have evidence of severe acute kidney injury. She is currently receiving as needed dialysis. Her nausea and vomiting has essentially resolved. She is still having a really difficult time hearing. Reason For Visit: ARF NAUSEA VOMITING Physical Exam Vital Signs: Temp Pulse Resp BP Pulse Ox 97.8 F 78 17 128/80 H 100 08/01/17 12:00 08/01/17 12:00 08/01/17 12:00 08/01/17 12:00 08/01/17 12:00 Pulse Oximeter Continuous Start: 07/27/17 21: 37 Freq: RTQ4 Status: Complete Document 07/28/17 00:00 STI (Rec: 07/28/17 00:10 STI [email or web address]) Pulse Oximetry Assessment Oxygen Saturation (92-100) 94 Oxygen Delivery Method Room Air Fraction of Inspired Oxygen (FIO2) 21 Equipment Usage Equipment in Use Continuous Pulse Oximeter 24 Hour Charge Charge Now Continuous SpO2 Machine # N-5 Pulse Oximeter Continuous Start: 07/27/17 21: 20 Freq: RTQ2HP Status: Complete Document 07/28/17 02:30 STI (Rec: 07/28/17 02:30 STI [email or web address]) Pulse Oximetry Assessment Oxygen Saturation (92-100) 99 Oxygen Delivery Method Room Air Fraction of Inspired Oxygen (FIO2) 21 Equipment Usage Equipment in Use Continuous SpO2 Machine # N-5 Intake & Output 07/31/17 08/01/17 08/02/17 06:59 06:59 06:59 Intake Total 1200 Output Total 2200 Balance -1000 Weight 75.8 kg Additional comments: Patient appears to be her stated age. She appears to be very healthy. She was noted to talk very loudly today. Her facial appearance is normal. I did reevaluate her tympanic membranes today. The left tympanic membrane appears to have less whitish plaque on it. The right tympanic membrane is clear today but she does continue to have drainage in the external canal. The patient's lungs are clear to auscultation bilaterally. Her cardiac exam is regular. I do not appreciate any murmurs, gallops or rubs. The abdomen is soft and flat. Bowel sounds are present. She does not have guarding or rebound noted and there are no hernias or masses present. The patient's dialysis catheter is in the left femoral vein. The groin site looks good. The catheter does not appear to be infected. Otherwise, the lower extremities are unremarkable and the skin exam is unremarkable. Results Laboratory Results: 08/01/17 04:32 08/01/17 04:32 08/01/17 08/01/17 04:32 04:32 WBC 12.6 H RBC 3.17 L Hgb 10.0 L Hct 29.7 L MCV 94 MCH 31.6 MCHC 33.7 RDW 15.2 H Plt Count 236 Seg Neutrophils % 71.2 Lymphocytes % 15.0 Monocytes % 11.2 Eosinophils % 1.8 Basophils % 0.8 Absolute Neutrophils 9.0 H Absolute Lymphocytes 1.9 Absolute Monocytes 1.4 Absolute Eosinophils 0.2 Absolute Basophils 0.1 Sodium 137.9 Potassium 4.0 Chloride 99 Carbon Dioxide 28 Anion Gap 11 BUN 24 H Creatinine 4.23 H Est GFR ( Amer) 14 L Est GFR (Non-Af Amer) 12 L Glucose 87 Calcium 9.4 Magnesium 2.1 Impressions: Chest X-Ray 07/25/17 17:16 IMPRESSION: NO SIGNIFICANT RADIOGRAPHIC FINDING IN THE CHEST. Abdomen Ultrasound 07/25/17 18:32 IMPRESSION: NORMAL ABDOMINAL ULTRASOUND. Assessment & Plan - Diagnosis (1) JASMIN (acute kidney injury) Is this a current diagnosis for this admission?: Yes Plan: Continue management per nephrology. Patient is making a lot of urine and her labs are improving. I told her this is a really good sign. She did not require dialysis today. (2) Acute ear pain Qualifiers: Laterality: bilateral Qualified Code(s): H92.03 - Otalgia, bilateral Is this a current diagnosis for this admission?: Yes Plan: Continue eardrops. Patient will require ENT evaluation. There is no one ping pong table assembler for ENT so I will not place a consultation at this time. Patient has been told that she will need ENT evaluation and this will likely need to occur after discharge. (3) DVT prophylaxis Is this a current diagnosis for this admission?: Yes Plan: Continue ambulation. (4) Hyperkalemia, diminished renal excretion Is this a current diagnosis for this admission?: Yes Plan: Resolved. (5) Metabolic acidosis Is this a current diagnosis for this admission?: Yes Plan: Resolved. (6) Nausea vomiting and diarrhea Is this a current diagnosis for this admission?: Yes Plan: Resolved (7) Tobacco abuse Is this a current diagnosis for this admission?: Yes (8) URI (upper respiratory infection) Qualifiers: URI type: unspecified viral URI Qualified Code(s): J06.9 - Acute upper respiratory infection, unspecified Is this a current diagnosis for this admission?: Yes Plan: The patient did have mild leukocytosis upon admission, but, she does not clinically appear to have any infection. Her chest x-ray is clear. Therefore, I stopped the amoxicillin that she was on on Tuesday. However, she then developed a mild leukocytosis on Tuesday and I re-started ceftriaxone. The trialysis catheter site looks good but I will try to cover skin bertin and upper respiratory bertin. - Time Time Spent with patient: 15-24 minutes - Inpatient Certification Medical Necessity: Risk of Complication if Not Cared For in Hospital
--- NOTE | 2017-08-01 21:12 | PDOC PROGRESS REPORT ---
Subjective Progress Note for:: 08/01/17 Subjective:: Patient has been doing better. She is no longer having nausea and vomiting. Her ear pain is slowly improving. Her hearing is still not 100%. She is making a very good amount of urine. I held her dialysis today. Reason For Visit: ARF NAUSEA VOMITING Physical Exam Vital Signs: Temp Pulse Resp BP Pulse Ox 97.9 F 97 16 142/90 H 97 08/01/17 20:00 08/01/17 20:00 08/01/17 20:00 08/01/17 20:00 08/01/17 20:00 Pulse Oximeter Continuous Start: 07/27/17 21: 37 Freq: RTQ4 Status: Complete Document 07/28/17 00:00 STI (Rec: 07/28/17 00:10 STI [email or web address]) Pulse Oximetry Assessment Oxygen Saturation (92-100) 94 Oxygen Delivery Method Room Air Fraction of Inspired Oxygen (FIO2) 21 Equipment Usage Equipment in Use Continuous Pulse Oximeter 24 Hour Charge Charge Now Continuous SpO2 Machine # N-5 Pulse Oximeter Continuous Start: 07/27/17 21: 20 Freq: RTQ2HP Status: Complete Document 07/28/17 02:30 STI (Rec: 07/28/17 02:30 STI [email or web address]) Pulse Oximetry Assessment Oxygen Saturation (92-100) 99 Oxygen Delivery Method Room Air Fraction of Inspired Oxygen (FIO2) 21 Equipment Usage Equipment in Use Continuous SpO2 Machine # N-5 Intake & Output 07/31/17 08/01/17 08/02/17 06:59 06:59 06:59 Intake Total 1200 600 Output Total 2200 1000 Balance -1000 -400 Weight 75.8 kg Exam: General appearance: PRESENT: no acute distress, cooperative, well-developed, well-nourished Head exam: PRESENT: atraumatic, normocephalic Eye exam: PRESENT: conjunctiva slightly pale, PERRLA. ABSENT: scleral icterus Neck exam: ABSENT: JVD Respiratory exam: PRESENT: Normal breath sounds. ABSENT: crackles, rales, rhonchi, unlabored, wheezes Cardiovascular exam: PRESENT: Regular rate rhythm -+S1, +S2. ABSENT: diastolic murmur, systolic murmur GI/Abdominal exam: PRESENT: normal bowel sounds, soft. ABSENT: guarding, mass, tenderness Extremities exam: ABSENT: No edema Neurological exam: PRESENT: alert, awake, oriented to person, place and time. Skin exam: PRESENT: dry, warm, Results Laboratory Results: 08/01/17 04:32 08/01/17 04:32 08/01/17 08/01/17 04:32 04:32 WBC 12.6 H RBC 3.17 L Hgb 10.0 L Hct 29.7 L MCV 94 MCH 31.6 MCHC 33.7 RDW 15.2 H Plt Count 236 Seg Neutrophils % 71.2 Lymphocytes % 15.0 Monocytes % 11.2 Eosinophils % 1.8 Basophils % 0.8 Absolute Neutrophils 9.0 H Absolute Lymphocytes 1.9 Absolute Monocytes 1.4 Absolute Eosinophils 0.2 Absolute Basophils 0.1 Sodium 137.9 Potassium 4.0 Chloride 99 Carbon Dioxide 28 Anion Gap 11 BUN 24 H Creatinine 4.23 H Est GFR ( Amer) 14 L Est GFR (Non-Af Amer) 12 L Glucose 87 Calcium 9.4 Magnesium 2.1 Impressions: Chest X-Ray 07/25/17 17:16 IMPRESSION: NO SIGNIFICANT RADIOGRAPHIC FINDING IN THE CHEST. Abdomen Ultrasound 07/25/17 18:32 IMPRESSION: NORMAL ABDOMINAL ULTRASOUND. Assessment & Plan - Diagnosis (1) JASMIN (acute kidney injury) Is this a current diagnosis for this admission?: Yes Plan: Patient does not have significant proteinuria nor microhematuria. No evidence of rhabdomyolysis. She also does not have any hydronephrosis and kidney ultrasound with normal kidney sizes. Patient is making some urine. However her kidney function is not improving as expected this is just due to prerenal azotemia and dehydration. It could initially have been prerenal azotemia which could have progressed to acute tubular necrosis. There is no evidence of acute interstitial nephritis. Urine output is improving. Kidney function is slowly improving. I held her dialysis today to allow her kidney function some spontaneous recovery on her own. Continue to monitor kidney function for the next couple more days. (2) Nausea vomiting and diarrhea Is this a current diagnosis for this admission?: Yes Plan: This could be initially due to acute gastroenteritis which now could also be due to possible uremic symptoms. This has resolved. (3) URI (upper respiratory infection) Qualifiers: URI type: unspecified viral URI Qualified Code(s): J06.9 - Acute upper respiratory infection, unspecified Is this a current diagnosis for this admission?: Yes Plan: On IV antibiotics. (4) Anemia Is this a current diagnosis for this admission?: Yes Plan: Mild after IV fluids. (5) Metabolic acidosis Is this a current diagnosis for this admission?: Yes Plan: Due to acute kidney injury. Resolved with dialysis. (6) Acute ear pain Qualifiers: Laterality: bilateral Qualified Code(s): H92.03 - Otalgia, bilateral Is this a current diagnosis for this admission?: Yes Plan: Associated with hearing loss which is worsening. Defer to hospitalist. Improving. - Time Time with patient: 15-25 minutes
[2017-08-02 08:17] LABS: ANION GAP 15 (5-19); BLOOD UREA NITROGEN 23 mg/dL (7-20); CALCIUM 9.7 mg/dL (8.4-10.2); CARBON DIOXIDE 28 mmol/L (22-30); CHLORIDE 99 mmol/L (98-107); GLUCOSE 93 mg/dL (75-110); POTASSIUM 4.4 mmol/L (3.6-5.0); SODIUM 141.5 mmol/L (137-145)
[2017-08-02] MEDS: DIPHENHYDRAMINE HCL 25 MG CAPSULE PO PRN ×2 (08:53→17:37)
[2017-08-02] MEDS: CHLORPHENIRAMINE MALEATE 4 MG TABLET PO SCH (08:53)
[2017-08-02] MEDS: MAGNESIUM OXIDE 400 MG TABLET PO SCH ×3 (08:54→17:38)
[2017-08-02] MEDS: CIPROFLOXACIN-HC OTIC SUSP 10 ML AU SCH ×2 (08:54→17:37)
--- NOTE | 2017-08-02 16:02 | PDOC PROGRESS REPORT ---
Subjective Progress Note for:: 08/02/17 Subjective:: Patient is doing very well. She is making good urine output. Her ears are also improving every day. No new complaints. Reason For Visit: ARF NAUSEA VOMITING Physical Exam Vital Signs: Temp Pulse Resp BP Pulse Ox 97.8 F 81 20 122/90 H 99 08/02/17 11:08 08/02/17 11:08 08/02/17 11:08 08/02/17 11:08 08/02/17 11:08 Pulse Oximeter Continuous Start: 07/27/17 21: 37 Freq: RTQ4 Status: Complete Document 07/28/17 00:00 STI (Rec: 07/28/17 00:10 STI [email or web address]) Pulse Oximetry Assessment Oxygen Saturation (92-100) 94 Oxygen Delivery Method Room Air Fraction of Inspired Oxygen (FIO2) 21 Equipment Usage Equipment in Use Continuous Pulse Oximeter 24 Hour Charge Charge Now Continuous SpO2 Machine # N-5 Pulse Oximeter Continuous Start: 07/27/17 21: 20 Freq: RTQ2HP Status: Complete Document 07/28/17 02:30 STI (Rec: 07/28/17 02:30 STI [email or web address]) Pulse Oximetry Assessment Oxygen Saturation (92-100) 99 Oxygen Delivery Method Room Air Fraction of Inspired Oxygen (FIO2) 21 Equipment Usage Equipment in Use Continuous SpO2 Machine # N-5 Intake & Output 08/01/17 08/02/17 08/03/17 06:59 06:59 06:59 Intake Total 1200 1800 Output Total 2200 3000 Balance -1000 -1200 Weight 75.8 kg 75.3 kg Exam: General appearance: PRESENT: no acute distress, cooperative, well-developed, well-nourished Head exam: PRESENT: atraumatic, normocephalic Eye exam: PRESENT: conjunctiva slightly pale, PERRLA. ABSENT: scleral icterus Neck exam: ABSENT: JVD Respiratory exam: PRESENT: Normal breath sounds. ABSENT: crackles, rales, rhonchi, unlabored, wheezes Cardiovascular exam: PRESENT: Regular rate rhythm -+S1, +S2. ABSENT: diastolic murmur, systolic murmur GI/Abdominal exam: PRESENT: normal bowel sounds, soft. ABSENT: guarding, mass, tenderness Extremities exam: ABSENT: No edema Neurological exam: PRESENT: alert, awake, oriented to person, place and time. Skin exam: PRESENT: dry, warm, Results Laboratory Results: 08/01/17 04:32 08/02/17 07:28 08/02/17 07:28 Sodium 141.5 Potassium 4.4 Chloride 99 Carbon Dioxide 28 Anion Gap 15 BUN 23 H Creatinine 2.97 H Est GFR ( Amer) 22 L Est GFR (Non-Af Amer) 18 L Glucose 93 Calcium 9.7 Magnesium 1.7 Impressions: Chest X-Ray 07/25/17 17:16 IMPRESSION: NO SIGNIFICANT RADIOGRAPHIC FINDING IN THE CHEST. Abdomen Ultrasound 07/25/17 18:32 IMPRESSION: NORMAL ABDOMINAL ULTRASOUND. Assessment & Plan - Diagnosis (1) JASMIN (acute kidney injury) Is this a current diagnosis for this admission?: Yes Plan: Patient does not have significant proteinuria nor microhematuria. No evidence of rhabdomyolysis. She also does not have any hydronephrosis and kidney ultrasound with normal kidney sizes. Patient is making some urine. However her kidney function is not improving as expected this is just due to prerenal azotemia and dehydration. It could initially have been prerenal azotemia which could have progressed to acute tubular necrosis. There is no evidence of acute interstitial nephritis. Urine output is improving. Kidney function much improved today. Patient no longer needs any acute hemodialysis treatment moving forward. I think the patient's kidney function will continuously improved from here. From nephrology standpoint I think the patient can be discharged home. I told the patient to follow-up with her primary care provider in the next 2 weeks and have her kidney function checked. If it still abnormal her primary care provider can refer her back to me otherwise I think she is just going to be fine. (2) Nausea vomiting and diarrhea Is this a current diagnosis for this admission?: Yes Plan: This could be initially due to acute gastroenteritis which now could also be due to possible uremic symptoms. This has resolved. (3) URI (upper respiratory infection) Qualifiers: URI type: unspecified viral URI Qualified Code(s): J06.9 - Acute upper respiratory infection, unspecified Is this a current diagnosis for this admission?: Yes Plan: On IV antibiotics. (4) Anemia Is this a current diagnosis for this admission?: Yes Plan: Mild after IV fluids. (5) Metabolic acidosis Is this a current diagnosis for this admission?: Yes Plan: Due to acute kidney injury. Resolved with dialysis. (6) Acute ear pain Qualifiers: Laterality: bilateral Qualified Code(s): H92.03 - Otalgia, bilateral Is this a current diagnosis for this admission?: Yes Plan: Associated with hearing loss which is worsening. Defer to hospitalist. Improving. - Time Time with patient: 15-25 minutes
[2017-08-02] MEDS: CEFTRIAXONE SODIUM 1,000 MG in NORMAL SALINE 100 ML IV SCH (17:36)
[2017-08-02] MEDS: ACETAMINOPHEN 325 MG TABLET PO PRN (17:37)
--- NOTE | 2017-08-02 21:56 | PDOC PROGRESS REPORT ---
Subjective Progress Note for:: 08/02/17 Subjective:: No complaints Reason For Visit: ARF NAUSEA VOMITING Physical Exam Vital Signs: Temp Pulse Resp BP Pulse Ox 98.1 F 82 16 130/95 H 99 08/01/17 23:41 08/01/17 23:41 08/01/17 23:41 08/01/17 23:41 08/01/17 23:41 Pulse Oximeter Continuous Start: 07/27/17 21: 37 Freq: RTQ4 Status: Complete Document 07/28/17 00:00 STI (Rec: 07/28/17 00:10 STI [email or web address]) Pulse Oximetry Assessment Oxygen Saturation (92-100) 94 Oxygen Delivery Method Room Air Fraction of Inspired Oxygen (FIO2) 21 Equipment Usage Equipment in Use Continuous Pulse Oximeter 24 Hour Charge Charge Now Continuous SpO2 Machine # N-5 Pulse Oximeter Continuous Start: 07/27/17 21: 20 Freq: RTQ2HP Status: Complete Document 07/28/17 02:30 STI (Rec: 07/28/17 02:30 STI [email or web address]) Pulse Oximetry Assessment Oxygen Saturation (92-100) 99 Oxygen Delivery Method Room Air Fraction of Inspired Oxygen (FIO2) 21 Equipment Usage Equipment in Use Continuous SpO2 Machine # N-5 Intake & Output 08/01/17 08/02/17 08/03/17 06:59 06:59 06:59 Intake Total 1200 1800 Output Total 2200 3000 Balance -1000 -1200 Weight 75.8 kg 75.3 kg General appearance: PRESENT: cooperative, well-developed, well-nourished Head exam: PRESENT: atraumatic, normocephalic Eye exam: PRESENT: EOMI, PERRLA Mouth exam: PRESENT: moist Neck exam: PRESENT: full ROM. ABSENT: JVD, lymphadenopathy, tenderness Respiratory exam: PRESENT: clear to auscultation mary Cardiovascular exam: PRESENT: RRR. ABSENT: diastolic murmur, systolic murmur GI/Abdominal exam: PRESENT: soft. ABSENT: guarding, tenderness Extremities exam: ABSENT: full ROM, pedal edema Musculoskeletal exam: PRESENT: ambulatory Psychiatric exam: PRESENT: appropriate affect, normal mood Skin exam: PRESENT: intact, normal color Results Laboratory Results: 08/01/17 04:32 08/01/17 04:32 Impressions: Chest X-Ray 07/25/17 17:16 IMPRESSION: NO SIGNIFICANT RADIOGRAPHIC FINDING IN THE CHEST. Abdomen Ultrasound 07/25/17 18:32 IMPRESSION: NORMAL ABDOMINAL ULTRASOUND. Assessment & Plan - Diagnosis (1) JASMIN (acute kidney injury) Is this a current diagnosis for this admission?: Yes Plan: Improving (2) Acute ear pain Qualifiers: Laterality: bilateral Qualified Code(s): H92.03 - Otalgia, bilateral Is this a current diagnosis for this admission?: Yes Plan: Resolved (3) Anemia Qualifiers: Anemia type: unspecified type Qualified Code(s): D64.9 - Anemia, unspecified Is this a current diagnosis for this admission?: Yes Plan: Stable (4) Metabolic acidosis Is this a current diagnosis for this admission?: Yes Plan: Stable (5) Nausea vomiting and diarrhea Is this a current diagnosis for this admission?: Yes Plan: Likely viral. Resolved (6) URI (upper respiratory infection) Qualifiers: URI type: unspecified viral URI Qualified Code(s): J06.9 - Acute upper respiratory infection, unspecified Is this a current diagnosis for this admission?: Yes Plan: Resolved - Time Time Spent with patient: Less than 15 minutes Medications reviewed and adjusted accordingly: Yes Anticipated discharge: Home - Inpatient Certification Based on my medical assessment, after consideration of the patient's comorbidities, presenting symptoms, or acuity I expect that the services needed warrant INPATIENT care.: Yes I certify that my determination is in accordance with my understanding of Medicare's requirements for reasonable and necessary INPATIENT services [42 CFR 412.3e].: Yes Medical Necessity: Need Close Monitoring Due to Risk of Patient Decompensation
[2017-08-03 07:12] LABS: ANION GAP 15 (5-19); BLOOD UREA NITROGEN 19 mg/dL (7-20); CALCIUM 9.9 mg/dL (8.4-10.2); CARBON DIOXIDE 26 mmol/L (22-30); CHLORIDE 102 mmol/L (98-107); GLUCOSE 78 mg/dL (75-110); POTASSIUM 4.2 mmol/L (3.6-5.0); SODIUM 142.5 mmol/L (137-145)
[2017-08-03 08:26] VITALS: BP 126/89
[2017-08-03] MEDS: CIPROFLOXACIN-HC OTIC SUSP 10 ML AU SCH (09:00)
[2017-08-03] MEDS: MAGNESIUM OXIDE 400 MG TABLET PO SCH (09:00)
[2017-08-03] MEDS: CHLORPHENIRAMINE MALEATE 4 MG TABLET PO SCH (09:01)
--- NOTE | 2017-08-03 19:07 | PDOC DISCHARGE SUMMARY ---
General - Admit/Disc Date/PCP Admission Date/Primary Care Provider: 07/25/17 21:33 Discharge Date: 08/03/17 - Discharge Diagnosis (1) JASMIN (acute kidney injury) Is this a current diagnosis for this admission?: Yes (2) URI (upper respiratory infection) Is this a current diagnosis for this admission?: Yes (3) Nausea vomiting and diarrhea Is this a current diagnosis for this admission?: Yes (4) Acute ear pain Is this a current diagnosis for this admission?: Yes (5) Anemia Is this a current diagnosis for this admission?: Yes (6) Metabolic acidosis Is this a current diagnosis for this admission?: Yes (7) Hyperkalemia, diminished renal excretion Is this a current diagnosis for this admission?: Yes (8) Hypokalemia Is this a current diagnosis for this admission?: Yes (9) Tobacco abuse Is this a current diagnosis for this admission?: Yes - Additional Information Resuscitation Status: Full Code Discharge Diet: As Tolerated Discharge Activity: Activity As Tolerated Home Medications: No Home Medications 07/25/17 History of Present Illness History of Present Illness: DAVIS BRUCE is a 36 year old female with a past medical history of substance and tobacco abuse. Patient presented with 2 weeks of symptoms of upper respiratory infection for which she was treated with ciprofloxacin for 3 days from the emergency room. She said she had some chest congestion, sore throat, sinus congestion, and bilateral ear pains. She also claimed she of some cough with productive of some yellow and greenish phlegm. She had no improvement but developed anorexia, nausea with vomiting of gastric content for 2 weeks and subjective fever for 2 days. She said she ate very little solid food and drank very little fluids for 2 weeks because she could not tolerate it orally. In the emergency room she has a workup notable for leukocytosis of 15, 000 and a creatinine of 17 with BUN of 146. Her CPK was within normal limits. Patient denied history of renal failure, oliguria, shortness of breath, palpitations. She she did not notice her urine output since she had all other symptoms stated above. She denied any previous history of kidney problems in the past nor history of kidney stones. She denied noticing any blood in the urine. For the past 2 weeks though she has some episodes of leaking and having urinary accidents whenever she vomit. She denies any history of hepatitis and HIV. Hospitalist service was consulted and was admitted for further management Hospital Course Hospital Course: Patient was admitted under hospitalist service. IV fluids were continued with some improvement. Patient required placement of dialysis cath to the left groin and she underwent dialysis as per Dr. Burton's recommendation. On the day of discharge BUN was 19 and creatinine was 2.68. Recommendation was for patient to be discharged and to follow-up with her primary care provider with the intention of follow-up BMP. Patient was informed. Symptoms of upper respiratory infection, left ear infection and diarrhea resolved. Patient was advised as to use Flonase OTC and any antihistaminic OTC. Patient had been advised as to avoid any nonsteroidal medications. Since patient had achieved maximum benefit of hospitalization stay prompted to discharge Physical Exam Vital Signs: Temp Pulse Resp BP Pulse Ox 98.6 F 84 14 127/68 H 98 08/03/17 00:00 08/03/17 00:00 08/03/17 00:00 08/03/17 00:00 08/03/17 00:00 Pulse Oximeter Continuous Start: 07/27/17 21: 37 Freq: RTQ4 Status: Complete Document 07/28/17 00:00 STI (Rec: 07/28/17 00:10 STI [email or web address]) Pulse Oximetry Assessment Oxygen Saturation (92-100) 94 Oxygen Delivery Method Room Air Fraction of Inspired Oxygen (FIO2) 21 Equipment Usage Equipment in Use Continuous Pulse Oximeter 24 Hour Charge Charge Now Continuous SpO2 Machine # N-5 Pulse Oximeter Continuous Start: 07/27/17 21: 20 Freq: RTQ2HP Status: Complete Document 07/28/17 02:30 STI (Rec: 07/28/17 02:30 STI [email or web address]) Pulse Oximetry Assessment Oxygen Saturation (92-100) 99 Oxygen Delivery Method Room Air Fraction of Inspired Oxygen (FIO2) 21 Equipment Usage Equipment in Use Continuous SpO2 Machine # N-5 Intake & Output 08/01/17 08/02/17 08/03/17 06:59 06:59 06:59 Intake Total 1200 1800 200 Output Total 2200 3000 Balance -1000 -1200 200 Weight 75.8 kg 75.3 kg 75.2 kg General appearance: PRESENT: cooperative, well-developed, well-nourished Head exam: PRESENT: atraumatic, normocephalic Eye exam: PRESENT: conjunctiva pink, EOMI, PERRLA Ear exam: PRESENT: normal external ear exam Mouth exam: PRESENT: moist Neck exam: PRESENT: full ROM. ABSENT: JVD, lymphadenopathy, tenderness, thyromegaly Respiratory exam: PRESENT: clear to auscultation mary. ABSENT: tachypnea, unlabored Cardiovascular exam: PRESENT: RRR. ABSENT: diastolic murmur, systolic murmur Vascular exam: PRESENT: normal capillary refill GI/Abdominal exam: PRESENT: normal bowel sounds, soft. ABSENT: ascites, tenderness Extremities exam: PRESENT: full ROM. ABSENT: pedal edema Musculoskeletal exam: PRESENT: ambulatory Neurological exam: PRESENT: alert, awake, oriented to person, oriented to place , oriented to time, oriented to situation, CN II-XII grossly intact Psychiatric exam: PRESENT: appropriate affect, normal mood Skin exam: PRESENT: intact, normal color Results Laboratory Results: 08/01/17 04:32 08/02/17 07:28 08/02/17 07:28 Sodium 141.5 Potassium 4.4 Chloride 99 Carbon Dioxide 28 Anion Gap 15 BUN 23 H Creatinine 2.97 H Est GFR ( Amer) 22 L Est GFR (Non-Af Amer) 18 L Glucose 93 Calcium 9.7 Magnesium 1.7 Impressions: Chest X-Ray 07/25/17 17:16 IMPRESSION: NO SIGNIFICANT RADIOGRAPHIC FINDING IN THE CHEST. Abdomen Ultrasound 07/25/17 18:32 IMPRESSION: NORMAL ABDOMINAL ULTRASOUND. Qualifiers - * PATEINT BEING DISCHARGED WITH ANY OF THE FOLLOWING DIAGNOSIS?: No Plan Discharge Plan: Discharge home. Patient advised to follow-up with primary care provider within 2 weeks Time Spent: Less than 30 Minutes
== END 2017-08-03 14:50 | disposition home or self-care (01) | DRG 683 ==
LOC: ER 15:43 → EH 21:33 → 4S 07-26 14:28
PROVIDERS: ADMIT Internal Medicine; ATTEND Internal Medicine
PROC: 5A1D70Z Performance of Urinary Filtration, Intermittent, Less than 6 Hours Per Day (ICD-10-PCS; 2017-07-28)
PROC: 5A1D70Z Performance of Urinary Filtration, Intermittent, Less than 6 Hours Per Day (ICD-10-PCS; principal; 2017-07-29)
DX: N17.9 Acute kidney failure, unspecified (principal); E87.2 Acidosis; J06.9 Acute upper respiratory infection, unspecified; E87.6 Hypokalemia; E87.5 Hyperkalemia; H66.92 Otitis media, unspecified, left ear; R19.7 Diarrhea, unspecified; D64.9 Anemia, unspecified; Z90.49 Acquired absence of other specified parts of digestive tract; Z90.710 Acquired absence of both cervix and uterus; F17.210 Nicotine dependence, cigarettes, uncomplicated
CPT/HCPCS: 36415; 71046; 76700; 80048; 80053; 80074; 80307; 81001; 81025; 82550; 82570; 83735; 84100; 84156; 84300; 85025; 87040; 89190; 94762; 94799; 96361; 96374; 99285; J0696; J1642; J1644; J2060; J2405; J2550; J2765; J3010; J3475; J3490; J7030; J7060; J7620

== ENCOUNTER 2017-11-18 06:52 | Emergency (ER) | payer MEDICAID ==
[2017-11-18 07:21] VITALS: BP 142/85
--- NOTE | 2017-11-18 09:13 | ER Document Report ---
HPI - HPI Patient complains to provider of: Right ear pain and cough Onset: Other - Few days Onset/Duration: Gradual Pain Level: 4 Context: 37-year-old female complaining of right ear pain for several days with cough and congestion. She was treated for pneumonia and acute renal failure with dialysis July 2017. Associated Symptoms: None Exacerbated by: Denies Relieved by: Denies - ROS ROS below otherwise negative: Yes Systems Reviewed and Negative: Yes All other systems reviewed and negative - REPRODUCTIVE Reproductive: DENIES: : Past Medical History - General Information source: Patient - Social History Smoking Status: Current Every Day Smoker Frequency of alcohol use: None Drug Abuse: None Family History: COPD Renal/ Medical History: Denies: Hx Peritoneal Dialysis Past Surgical History: Reports: Hx Cholecystectomy, Hx Hysterectomy, Hx Orthopedic Surgery - bilateral knee surgery - Immunizations Immunizations up to date: Yes Hx Diphtheria, Pertussis, Tetanus Vaccination: Yes Vertical Provider Document - CONSTITUTIONAL Agree With Documented VS: Yes Exam Limitations: No Limitations - INFECTION CONTROL TRAVEL OUTSIDE OF THE [place] IN LAST 30 DAYS: No - HEENT HEENT: Tympanic Membrane Red, Tympanic Membrane Bulging - Right. negative: Conjuctival Injection Notes: Right canal is tender and minimally swollen - NECK Neck: Supple. negative: Lymphadenopathy-Left, Lymphadenopathy-Right - RESPIRATORY Respiratory: Breath Sounds Normal, No Respiratory Distress - CARDIOVASCULAR Cardiovascular: Regular Rate, Regular Rhythm - GI/ABDOMEN Gastrointestinal: Abdomen Soft, Abdomen Non-Tender, No Organomegaly - MUSCULOSKELETAL/EXTREMETIES Musculoskeletal/Extremeties: MAEW - NEURO Level of Consciousness: Awake - DERM Integumentary: No Rash Course - Re-evaluation Re-evalutation: 11/18/17 10:35 BUN and creatinine are normal, WBCs are 14.6, chest x-ray is negative, she has expiratory wheeze on the right. I will treat with inhaled bronchodilators, Augmentin for right otitis media, Ciprodex for the otitis externa, and encourage her to quit smoking. 11/18/17 10:39 Patient is okay to take prednisone and dexamethasone the only thing she is allergic to his cortisone. - Vital Signs Vital signs: Temp Pulse Resp BP Pulse Ox 97.7 F 82 18 142/85 H 98 11/18/17 07:19 11/18/17 07:19 11/18/17 07:19 11/18/17 07:19 11/18/17 07:19 - Laboratory Result Diagrams: 11/18/17 09:50 11/18/17 09:50 Discharge - Discharge Clinical Impression: Right otitis externa, Right otitis media, Bronchitis Condition: Good Disposition: HOME, SELF-CARE Instructions: Bronchitis With Bronchospasm (Wheezing) ([facility]), Ciprofloxacin ([facility] ), Inhaled Bronchodilators ([facility]), Otitis Externa ([facility]), Otitis Media ([facility]), Steroid Medication Additional Instructions: stop smoking Plenty of fluids Ear recheck next week Return to the emergency room if worse Use the albuterol metered-dose inhaler Prednisone for inflammation Ciprodex for the swimmer's ear Augmentin for the inner ear infection Prescriptions: Albuterol Sulfate [Proair HFA Inhalation Aerosol 8.5 gm MDI] 2 puff IH Q3HP PRN #1 [email or web address] PRN Reason: Amoxicillin/Potassium Clav [Augmentin 875-125 Tablet] 1 each PO BID #20 tablet Prednisone [Deltasone 20 mg Tablet] 40 mg PO DAILY #8 tablet Referrals: NELA PENN PA-C [Primary Care Provider] - Follow up in 3-5 days
[2017-11-18] MEDS ORDERED: AMOXICILLIN TRIHYDRATE 500 MG CAPSULE PO ONE (09:20)
[2017-11-18] MEDS ORDERED: IPRATROPIUM/ALBUTEROL 0.5-2.5 MG/3 ML AMPUL NEB ONE (09:20)
[2017-11-18] MEDS ORDERED: CIPROFLOXACIN HCL/DEXAMETH OTIC DROP 7.5 ML AD ONE (09:20)
[2017-11-18] MEDS ORDERED: AMOXICILLIN TR/POT CLAVULANATE 500-125 MG TAB PO ONE (09:20)
[2017-11-18] MEDS ORDERED: ALBUTEROL SULFATE 0.083% NEB 2.5 MG/3 ML AMPUL NEB ONE (09:20)
[2017-11-18 10:01] LABS: ABSOLUTE EOSINOPHILS # (AUTO) 0.3 10^3/uL (0.0-0.6); ABSOLUTE LYMPHOCYTES (AUTO) 2.9 10^3/uL (0.5-4.7); ABSOLUTE MONOCYTES (AUTO) 0.8 10^3/uL (0.1-1.4); ABSOLUTE NEUT (AUTO) 10.4 10^3/uL (1.7-8.2); BASOPHILS % (AUTO) 0.3 % (0-2); EOSINOPHILS % (AUTO) 2.4 % (0-6); HEMATOCRIT 36.8 % (36.0-47.0); HEMOGLOBIN 12.6 g/dL (12.0-15.5); MEAN CORPUSCULAR HEMOGLOBIN 32.3 pg (27.0-33.4); MEAN CORPUSCULAR HGB CONC 34.3 g/dL (32.0-36.0); MEAN CORPUSCULAR VOLUME 94 fl (80-97); MONOCYTES % (AUTO) 5.8 % (3-13); PLATELET COUNT 336 10^3/uL (150-450); RED BLOOD COUNT 3.92 10^6/uL (3.72-5.28); RED CELL DISTRIBUTION WIDTH 13.7 % (11.5-14.0); SEGMENTED NEUTROPHILS % (AUTO) 71.5 % (42-78); TOTAL CELLS COUNTED % (AUTO) 100 %; WHITE BLOOD COUNT 14.6 10^3/uL (4.0-10.5)
--- NOTE | 2017-11-18 10:04 | RADIOLOGY REPORT (SQ) ---
EXAM DESCRIPTION: CHEST 2 VIEWS COMPLETED DATE/TIME: 11/18/2017 9:48 am REASON FOR STUDY: cough COMPARISON: 07/25/2017 EXAM PARAMETERS: NUMBER OF VIEWS: two views TECHNIQUE: Digital Frontal and Lateral radiographic views of the chest acquired. RADIATION DOSE: NA LIMITATIONS: none FINDINGS: LUNGS AND PLEURA: No opacities, masses or pneumothorax. No pleural effusion. MEDIASTINUM AND HILAR STRUCTURES: No masses or contour abnormalities. HEART AND VASCULAR STRUCTURES: Heart normal size. No evidence for failure. BONES: No acute findings. HARDWARE: None in the chest. OTHER: No other significant finding. IMPRESSION: NO ACUTE RADIOGRAPHIC FINDING IN THE CHEST. TECHNICAL DOCUMENTATION: JOB ID: [id number]- All Rights Reserved Reading location - IP/workstation name: [email or web address]
[2017-11-18 10:26] LABS: ALANINE AMINOTRANSFERASE 16 U/L (9-52); ALBUMIN 3.8 g/dL (3.5-5.0); ALKALINE PHOSPHATASE 88 U/L (38-126); ANION GAP 12 (5-19); ASPARTATE AMINO TRANSFERASE 22 U/L (14-36); BILIRUBIN,DIRECT 0.4 mg/dL (0.0-0.4); BILIRUBIN,TOTAL 0.6 mg/dL (0.2-1.3); BLOOD UREA NITROGEN 6 mg/dL (7-20); CALCIUM 9.4 mg/dL (8.4-10.2); CARBON DIOXIDE 23 mmol/L (22-30); CHLORIDE 111 mmol/L (98-107); GLUCOSE 89 mg/dL (75-110); POTASSIUM 3.8 mmol/L (3.6-5.0); SODIUM 145.9 mmol/L (137-145); TOTAL PROTEIN 6.8 g/dL (6.3-8.2)
[2017-11-18] MEDS ORDERED: PREDNISONE 20 MG TABLET PO ONE (10:36)
== END 2017-11-18 11:03 | disposition home or self-care (01) ==
LOC: ER 06:52
DX: H66.91 Otitis media, unspecified, right ear (principal); H60.91 Unspecified otitis externa, right ear; J40 Bronchitis, not specified as acute or chronic; F17.200 Nicotine dependence, unspecified, uncomplicated; Z90.49 Acquired absence of other specified parts of digestive tract; Z90.710 Acquired absence of both cervix and uterus
CPT/HCPCS: 94640 ×2; 99283; 36415; 85025; 80053; 71046; J3490 ×2; J7512; J7620

== ENCOUNTER 2018-07-15 20:59 | Emergency (ER) | payer MEDICAID ==
[2018-07-15 21:17] VITALS: BP 139/87
[2018-07-15] MEDS ORDERED: DIPH/PERTUSS(ACELL)/TETANUS VAC/PF 0.5 ML SYR (>=10YO) IM ONE (22:48)
[2018-07-15] MEDS ORDERED: HYDROCODONE/ACETAMINOPHEN 5-325 MG TABLET PO ONE (22:48)
[2018-07-15] MEDS ORDERED: LIDOCAINE 1%/EPINEPHRINE INJ 20 ML VIAL INJ ONE (22:49)
--- NOTE | 2018-07-15 23:21 | RADIOLOGY REPORT (SQ) ---
EXAM DESCRIPTION: XR WRIST 3 OR MORE VIEWS BILATERAL COMPLETED DATE/TME: 07/15/2018 22:49 CLINICAL HISTORY: 37 years, Female, wrist lac, ?FB COMPARISON: None. NUMBER OF VIEWS: 3 TECHNIQUE: 3 views right wrist LIMITATIONS: None. FINDINGS: Negative for fracture or dislocation. Soft tissues are unremarkable IMPRESSION: Negative exam copyright 2011 [employer]- All Rights Reserved
--- NOTE | 2018-07-15 23:28 | ER Document Report ---
HPI - HPI Patient complains to provider of: Wrist laceration Time Seen by Provider: 07/15/18 22:42 Onset: Just prior to arrival Onset/Duration: Sudden Quality of pain: Achy Pain Level: 4 Context: Patient states that she was attempting to close a window and it broke cutting her right wrist. Patient with abrasions and a laceration to the wrist area. Patient denies any suicidal or homicidal ideation. Associated Symptoms: Other - Right wrist injury Exacerbated by: Movement Relieved by: Denies Similar symptoms previously: No Recently seen / treated by doctor: No - ROS ROS below otherwise negative: Yes Systems Reviewed and Negative: Yes All other systems reviewed and negative - CONSTITUTIONAL Constitutional: DENIES: Fever, Chills - NEURO Neurology: DENIES: Weakness - REPRODUCTIVE Reproductive: DENIES: : - MUSCULOSKELETAL Musculoskeletal: REPORTS: Extremity pain - DERM Skin Color: Normal Skin Problems: Abrasion, Laceration Past Medical History - General Information source: Patient - Social History Smoking Status: Current Every Day Smoker Smoking Education Provided: Yes Frequency of alcohol use: None Drug Abuse: None Occupation: traffic control Family History: COPD - Medical History Medical History: Negative Renal/ Medical History: Denies: Hx Peritoneal Dialysis Past Surgical History: Reports: Hx Cholecystectomy, Hx Hysterectomy, Hx Orthopedic Surgery - bilateral knee surgery - Immunizations Immunizations up to date: Yes Hx Diphtheria, Pertussis, Tetanus Vaccination: No Vertical Provider Document - CONSTITUTIONAL Agree With Documented VS: Yes Exam Limitations: No Limitations General Appearance: WD/WN, No Apparent Distress - INFECTION CONTROL TRAVEL OUTSIDE OF THE [place] IN LAST 30 DAYS: No - HEENT HEENT: Atraumatic, Normocephalic - NECK Neck: Normal Inspection - RESPIRATORY Respiratory: Breath Sounds Normal, No Respiratory Distress - CARDIOVASCULAR Cardiovascular: Regular Rate, Regular Rhythm Pulses: Normal: Radial - MUSCULOSKELETAL/EXTREMETIES Musculoskeletal/Extremeties: MAEW, FROM - NEURO Level of Consciousness: Awake, Alert, Appropriate Motor/Sensory: No Motor Deficit - DERM Integumentary: Warm, Dry, Laceration - 1 cm lac to radial aspect of r wrist Course - Re-evaluation Re-evalutation: 07/15/18 Patient's right wrist irrigated with tap water for 10 minutes. Patient with very superficial abrasions to the wrist area with a small 1 cm laceration. No retained foreign body noted per x-ray. Patient without any tendon deficit or injury. Discussed wound care as well as any worsening signs or symptoms that she should return immediately for. Patient stable for discharge and is agre eable with plan of care. - Vital Signs Vital signs: Temp Pulse Resp BP Pulse Ox 98.1 F 90 16 139/87 H 97 07/15/18 21:16 07/15/18 21:16 07/15/18 21:16 07/15/18 21:16 07/15/18 21:16 - Diagnostic Test Radiology reviewed: Image reviewed, Reports reviewed Procedures - Laceration/Wound Repair Right Wrist Wound length (cm): 1 Wound's Depth, Shape: Linear Anesthetic type: 1% Lidocaine w/epi Wound explored: Clean Wound Repaired With: Sutures Suture Size/Type: 5:0, Nylon Number of Sutures: 2 Post-procedure wound care: Sterile dressing applied Post-procedure NV exam normal: Yes Complications: No Discharge - Discharge Clinical Impression: Laceration of wrist Qualifiers: Encounter type: initial encounter Laterality: right Qualified Code(s): S61.511A - Laceration without foreign body of right wrist, initial encounter Condition: Stable Disposition: HOME, SELF-CARE Instructions: Laceration Care ([facility]), Tetanus Immunization Given ([facility]) Additional Instructions: Return immediately for any new or worsening symptoms Followup with your primary care provider, call tomorrow to make a followup appointment Suture removal in 10 days Forms: Smoking Cessation Education Referrals: NELA PENN PA-C [Primary Care Provider] - Follow up as needed
== END 2018-07-16 01:13 | disposition home or self-care (01) ==
LOC: ER 20:59
DX: S61.511A Laceration without foreign body of right wrist, initial encounter (principal); W25.XXXA Contact with sharp glass, initial encounter; Y93.89 Activity, other specified; F17.200 Nicotine dependence, unspecified, uncomplicated
CPT/HCPCS: 99283; 90471; 73110; 90715; 12001; J3490